=== PATIENT | female | born 1995 | race Hispanic/Latino ===

== ENCOUNTER 2017-07-10 03:55 | Emergency (ER) | payer MEDICAID ==
[2017-07-10 05:20] LABS: Urine Blood NEGATIVE (NEG); Urine Glucose NEGATIVE (NEG); Urine Protein TRACE (NEG); Urine Specific Gravity >1.030 (1.005-1.030)
[2017-07-10 05:40] LABS: Barbiturates NEGATIVE; Benzodiazepines NEGATIVE; Cocaine NEGATIVE; METHAMPHETAM NEGATIVE; Opiates NEGATIVE; Phencyclidine NEGATIVE; THC Cannibis NEGATIVE
[2017-07-10 05:45] LABS: Glucose Level 104 mg/dL (65-120)
[2017-07-10 05:48] LABS: ALT/SGPT 17 IU/L (10-60); AST/SGOT 21 IU/L (10-42); Albumin 3.8 g/dL (3.2-5.5); Alkaline Phosphatase 44 IU/L (42-121); BUN Blood Urea Nitrogen 9 mg/dL (6-20); Glomerular Filtration Rate > 90 mL/min (=/>90); Protein, Total 6.8 g/dL (6.0-8.3)
[2017-07-10 05:52] LABS: Bicarbonate 25 mEq/L (21-31); Sodium Level 134 mEq/L (135-145)
[2017-07-10 05:54] LABS: Bilirubin Total < 0.1 mg/dL (0.3-1.2)
[2017-07-10 05:57] LABS: Absolute Lymphocytes (CBC) 2.4 K/uL (0.7-4.9); Absolute Monocytes 0.4 K/uL (0.1-1.3); Absolute Neutrophil 2.9 K/uL (1.8-8.0); Basophils % 0.6 % (0-1.3); Eosinophils % 3.9 % (0-4.4); Hematocrit 28.3 % (36.0-45.0); MCV 65.5 fL (80-100); MPV 9.4 fL (7.6-11.3); Monocytes % 7.1 % (3.3-12.3); RBC Red Blood Cell Count 4.33 M/uL (3.86-4.86)
--- NOTE | 2017-07-10 06:23 | RAD REPORT ---
EXAM DESCRIPTION: RAD - Chest Single View - 07/10/2017 5:20 am CLINICAL HISTORY: Cough, dyspnea COMPARISON: May 2016 TECHNIQUE: AP portable chest image was obtained 0510 hours . FINDINGS: Lungs are clear. Heart and vasculature are normal. No measurable pleural effusion and no p neumothorax. No gross bony abnormality seen. No acute aortic findings suspected. IMPRESSION: No acute cardiopulmonary process. No significant change from comparison.
[2017-07-10 06:24] LABS: Thyroid Stimulating Hormone 0.05 uIU/mL (0.34-5.60)
[2017-07-10] MEDS ORDERED: POTASSIUM 25 MEQ EFFERV TAB ONE (06:43)
[2017-07-10 06:47] LABS: Anisocytosis 1+; Blood Morphology Comment NOTED (NOT SEEN); Hypochromasia 1+; Platelet Estimate ADEQ
--- NOTE | 2017-07-10 06:59 | EDPHYS ---
Physician Documentation [facility] Name: Kelli Baugh Age: 21 yrs Sex: Female : 1995 Arrival Date: 07/10/2017 Time: 04:01 Bed 6 Private MD: ED Physician Pedro Melvin HPI: 07/10 04:25 This 21 yrs old Female presents to ER via Ambulatory with complaints of Eye rosette Swelling, Breathing Difficulty, Other. 04:25 The patient is experiencing pain. 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 - Social history:: Smoking status: Patient/guardian denies using tobacco, Patient uses alcohol, only on a social basis. Patient/guardian denies using street drugs. ROS: 04:26 Constitutional: Negative for fever, chills, and weight loss, Eyes: Negative for injury, rosette pain, redness, and discharge, ENT: Negative for injury, pain, and discharge, Neck: Negative for injury, pain, and swelling, Abdomen/GI: Negative for abdominal pain, nausea, vomiting, diarrhea, and constipation, Back: Negative for injury and pain, : Negative for injury, bleeding, discharge, and swelling, MS/Extremity: Negative for injury and deformity, Neuro: Negative for headache, weakness, numbness, tingling, and seizure, Psych: Negative for depression, anxiety, suicide ideation, homicidal ideation, and hallucinations, Allergy/Immunology: Negative for hives, rash, and allergies, Endocrine: Negative for neck swelling, polydipsia, polyuria, polyphagia, and marked weight changes, Hematologic/Lymphatic: Negative for swollen nodes, abnormal bleeding, and unusual bruising. 04:26 Cardiovascular: Positive for palpitations. 04:26 Respiratory: Positive for shortness of breath. Exam: 04:26 Constitutional: This is a well developed, well nourished patient who is awake, alert, rosette and in no acute distress. Eyes: Pupils equal round and reactive to light, extra-ocular motions intact. Lids and lashes normal. Conjunctiva and sclera are non-icteric and not injected. Cornea within normal limits. Periorbital areas with no swelling, redness, or edema. ENT: Nares patent. No nasal discharge, no septal abnormalities noted. Tympanic membranes are normal and external auditory canals are clear. Oropharynx with no redness, swelling, or masses, exudates, or evidence of obstruction, uvula midline. Mucous membranes moist. Neck: Trachea midline, no thyromegaly or masses palpated, and no cervical lymphadenopathy. Supple, full range of motion without nuchal rigidity, or vertebral point tenderness. No Meningismus. Chest/axilla: Normal chest wall appearance and motion. Nontender with no deformity. No lesions are appreciated. Cardiovascular: Regular rate and rhythm with a normal S1 and S2. No gallops, murmurs, or rubs. Normal PMI, no JVD. No pulse deficits. Respiratory: Lungs have equal breath sounds bilaterally, clear to auscultation and percussion. No rales, rhonchi or wheezes noted. No increased work of breathing, no retractions or nasal flaring. Abdomen/GI: Soft, non-tender, with normal bowel sounds. No distension or tympany. No guarding or rebound. No evidence of tenderness throughout. Back: No spinal tenderness. No costovertebral tenderness. Full range of motion. Pelvic Exam: Normal external genitalia. Speculum exam with closed cervical os, no discharge or bleeding noted. Bimanual exam with normal adnexa, no adnexal or cervical motion tenderness. Normal uterus. Female : Normal external genitalia. Skin: Warm, dry with normal turgor. Normal color with no rashes, no lesions, and no evidence of cellulitis. MS/ Extremity: Pulses equal, no cyanosis. Neurovascular intact. Full, normal range of motion. Neuro: Awake and alert, GCS 15, oriented to person, place, time, and situation. Cranial nerves II-XII grossly intact. Motor strength 5/5 in all extremities. Sensory grossly intact. Cerebellar exam normal. Normal gait. Psych: Awake, alert, with orientation to person, place and time. Behavior, mood, and affect are within normal limits. 04:26 Head/face: Noted is contusion, swelling, tenderness, that is mild, of the left cheek and left eye. 04:28 Musculoskeletal/extremity: ROM: no acute changes, intact in all extremities, full rosette active range of motion, full passive range of motion, Circulation is intact in all extremities. Pulses: Sensation intact. Compartment Syndrome exam of affected extremity: is normal. DVT Exam: No signs of deep vein thrombosis. no pain, no swelling, no tenderness, negative Homans' sign noted on exam, no appreciated bluish discoloration, no erythema, no increased warmth. Vital Signs: 04:15 BP 134 / 88; Pulse 73; Resp 18 S; Temp 98(O); Pulse Ox 100% on R/A; Weight 63.5 kg (R); bb Height 5 ft. 4 in. (162.56 cm) (R); Pain 0/10; 05:01 BP 101 / 90; Pulse 71; Resp 16; Pulse Ox 100% on R/A; aa1 06:39 BP 104 / 57; Pulse 60; Resp 16; Pulse Ox 100% on R/A; aa1 04:15 Body Mass Index 24.03 (63.50 kg, 162.56 cm) MDM: 04:04 Patient medically screened. [facility] 04:30 Data reviewed: vital signs, nurses notes, lab test result(s), EKG, radiologic studies, [facility] CT scan, plain films. 07/10 04:25 Order name: CBC with Diff [facility] 07/10 04:25 Order name: Comprehensive Metabolic Panel; Complete Time: 06:39 [facility] 07/10 04:25 Order name: TSH; Complete Time: 06:39 [facility] 07/10 04:30 Order name: UDS; Complete Time: 06:39 [facility] 07/10 04:49 Order name: Urine Dipstick--Ancillary (enter results); Complete Time: 05:42 07/10 04:49 Order name: Urine --Ancillary (enter results); Complete Time: 05:42 07/10 04:25 Order name: EKG; Complete Time: 05:02 [facility] 07/10 04:25 Order name: EKG - Nurse/Tech; Complete Time: 04:40 [facility] 07/10 04:25 Order name: CT Maxillofacial W/cont [facility] 07/10 04:28 Order name: Chest Single View XRAY; Complete Time: 06:39 [facility] 07/10 06:47 Order name: Manual Differential EDMS 07/10 04:25 Order name: Urine Test (obtain specimen); Complete Time: 04:40 [facility] 07/10 04:25 Order name: Urine Dipstick-Ancillary (obtain specimen); Complete Time: 04:40 [facility] 07/10 06:45 Order name: PO challenge: juice x 1; Complete Time: 06:48 [facility] Administered Medications: 06:40 CANCELLED (Duplicate Order): Potassium Chloride 40 mEq PO once [facility] 06:48 Drug: Potassium Effervescent Tablet 50 mEq Route: PO; aa1 06:49 Not Given (Hemodynamic Parameters): ToPROL XL 25 mg PO once aa1 Disposition: 07/10/17 06:59 Discharged to Home. Impression: Palpitations, Anemia, unspecified, Hypokalemia, Thyrotoxicosis [hyperthyroidism], Dacryolith of left lacrimal passage. - Condition is Stable. - Discharge Instructions: Iron Deficiency Anemia, Adult, Anemia, Nonspecific, Dacryocystitis, Potassium Content of Foods, Palpitations, Palpitations, [id number], Iron Deficiency Anemia, Adult, [id number], Hypokalemia. - Prescriptions for Tapazole 10 mg Oral Tablet - take 1 tablet by ORAL route every 8 hours; 30 tablet. Toprol XL 25 mg Oral Tablet - take 1 tablet by ORAL route once daily; 20 tablet. Keflex 500 mg Oral Capsule - take 1 capsule by ORAL route every 6 hours for 7 days; 28 capsule. - Work release form, Medication Reconciliation Form, Thank You Letter, Antibiotic Education, Prescription Opioid Use form. - Follow up: Private Physician; When: 2 - 3 days; Reason: Recheck today's complaints, Continuance of care, Re-evaluation by your physician. Follow up: Calin Hull MD; When: 2 - 3 days; Reason: Recheck today's complaints, Re-evaluation by your physician. - Problem is new. - Symptoms have improved. Signatures: Dispatcher [employer] EDMS Shekhar Rodriguez RN RN sg Haven Velasquez RN RN aa1 Pedro Melvin MD MD cha Ballard, Brenda, RN RN bb Corrections: (The following items were deleted from the chart) 06:40 06:39 Potassium Chloride Liquid 40 mEq PO once ordered. [facility]
--- NOTE | 2017-07-10 06:59 | ER ---
Nurse's Notes [facility] Name: Kelli Baugh Age: 21 yrs Sex: Female : 1995 Arrival Date: 07/10/2017 Time: 04:01 Bed 6 Private MD: Diagnosis: Palpitations;Anemia, unspecified;Hypokalemia;Thyrotoxicosis [hyperthyroidism];Dacryolith of left lacrimal passage Presentation: 07/10 04:12 Presenting complaint: Patient states: she woke up approx 0245 with swelling under her bb left eye and palpitations pt states she has Graves Disease. Transition of care: patient was not received from another setting of care. Onset of symptoms was July 10, 2017 at 02:30. Initial Sepsis Screen: Does the patient meet any 2 criteria? No. Patient's initial sepsis screen is negative. Does the patient have a suspected source of infection? No. Patient initial sepsis screen negative. Care prior to arrival: None. 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 - Social history:: Smoking status: Patient/guardian denies using tobacco, Patient uses alcohol, only on a social basis. Patient/guardian denies using street drugs. Screenin:25 Abuse screen: Denies threats or abuse. Denies injuries from another. Nutritional aa1 screening: No deficits noted. Tuberculosis screening: No symptoms or risk factors identified. Fall Risk None identified. Assessment: 04:25 General: Appears in no apparent distress. comfortable, Behavior is calm, cooperative, aa1 appropriate for age. Pain: Denies pain. Neuro: Level of Consciousness is awake, alert, obeys commands, Oriented to person, place, time, situation, Gait is steady, Pupils are PERRLA. Cardiovascular: Heart tones S1 S2 present Rhythm is sinus rhythm. Respiratory: Airway is patent Respiratory effort is even, unlabored, Respiratory pattern is regular, symmetrical, Breath sounds are clear bilaterally. GI: No signs and/or symptoms were reported involving the gastrointestinal system. : No signs and/or symptoms were reported regarding the genitourinary system. EENT: No signs and/or symptoms were reported regarding the EENT system. Derm: Skin is intact, is healthy with good turgor, Skin is pink, warm \T\ dry. Musculoskeletal: Circulation, motion, and sensation intact. Capillary refill < 3 seconds, Swelling present in left cheek. 06:31 Reassessment: Patient appears in no apparent distress at this time. Patient and/or aa1 family updated on plan of care and expected duration. Pain level reassessed. Patient is alert, oriented x 3, equal unlabored respirations, skin warm/dry/pink. Awaiting CT results. Vital Signs: 04:15 BP 134 / 88; Pulse 73; Resp 18 S; Temp 98(O); Pulse Ox 100% on R/A; Weight 63.5 kg (R); bb Height 5 ft. 4 in. (162.56 cm) (R); Pain 0/10; 05:01 BP 101 / 90; Pulse 71; Resp 16; Pulse Ox 100% on R/A; aa1 06:39 BP 104 / 57; Pulse 60; Resp 16; Pulse Ox 100% on R/A; aa1 04:15 Body Mass Index 24.03 (63.50 kg, 162.56 cm) bb ED Course: 04:01 Patient arrived in ED. es 04:04 Pedro Melvin MD is Attending Physician. rosette 04:14 Triage completed. bb 04:15 Arm band placed on Patient placed in an exam room, on a stretcher, on pulse oximetry. bb 04:18 Haven Velasquez, RN is Primary Nurse. aa1 04:25 Patient has correct armband on for positive identification. Placed in gown. Bed in low aa1 position. Call light in reach. Pulse ox on. NIBP on. Warm blanket given. 04:35 Urine collected: clean catch specimen, clear, EKG done, by ED staff, reviewed by Pedro Melvin MD. 04:50 Initial lab(s) drawn, by pr, sent to lab. Inserted saline lock: 20 gauge in left aa1 antecubital area, using aseptic technique. Blood collected. 05:18 X-ray completed. Portable x-ray completed in exam room. Patient tolerated procedure kw well. 05:19 Chest Single View XRAY In Process Unspecified. EDMS 06:12 CT Maxillofacial W/cont In Process Unspecified. EDMS 07:32 Calin Hull MD is Referral Physician. rosette Administered Medications: 06:40 CANCELLED (Duplicate Order): Potassium Chloride 40 mEq PO once rosette 06:48 Drug: Potassium Effervescent Tablet 50 mEq Route: PO; aa1 06:49 Not Given (Hemodynamic Parameters): ToPROL XL 25 mg PO once aa1 Outcome: 06:59 Discharge ordered by . [place] 07:54 Patient left the ED. sg Signatures: Dispatcher [employer] EDMS Shekhar Rodriguez RN RN sg Haven Velasquez RN RN aa1 Pedro Melvin MD MD cha Salyer, Edna es Ballard, Brenda, RN RN Gale Wu
--- NOTE | 2017-07-10 08:12 | RAD REPORT ---
EXAM DESCRIPTION: CT - Maxillofacial W/Cont - 07/10/2017 6:12 am CLINICAL HISTORY: Left-sided facial swelling, Graves disease A preliminary written report was provided at the time of the study, and the report was reviewed prio r to final dictation. COMPARISON: None. TECHNIQUE: During dynamic IV contrast enhancement, axial 2 millimeter thick images obtained. [place] l and coronal reformatted images for generated and reviewed. FINDINGS: Intracranial portion of the examination is unremarkable. Mastoid air cells and paranasal s inuses are clear. No abnormality of the globe or orbital contents. Edema changes are present in the s oft tissues along the inferior orbital rim and maxillary sinus wall on the left. No air or foreign radha dy. No drainable fluid collection. No acute bone finding is identifiable. The left-sided soft tissue changes extend towards the medial canthus. Dacryocystitis are similar infectious/inflammatory changes to the lacrimal system would be consideration. An unrelated cellulitis can give this presentation. IMPRESSION: Edematous/inflammatory soft tissue changes along the inferior orbital rim and maxilla so ft tissues on the left. No foreign body, air or drainable fluid collection. No postseptal orbital or sinus involvement. This could be an nonspecific cellulitis or possible dacry ocystitis or lacrimal system infectious/inflammatory process.
--- NOTE | 2017-07-10 08:26 | EKG ---
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
== END 2017-07-10 07:54 | disposition home or self-care (01) ==
LOC: ER 03:55
DX: D64.9 Anemia, unspecified (principal); E87.6 Hypokalemia; E05.90 Thyrotoxicosis, unspecified without thyrotoxic crisis or storm; H04.512 Dacryolith of left lacrimal passage; Z88.5 Allergy status to narcotic agent
CPT/HCPCS: 36415; 70487; 71045; 80053; 80307; 81003; 81025; 84443; 85025; 93005; 99284; Q9967

== ENCOUNTER 2018-06-17 12:21 | Emergency (ER) | payer MEDICAID ==
--- OUTSIDE RECORDS SUMMARY | 2018-06-17 12:25 | XMS REPORT ---
:1995 [facility] Address [address] [place] [address] [address] [place] [address] Care Team Providers Name Role Phone Unavailable Unavailable Unavailable Problems This patient has no known problems. Allergies, Adverse Reactions, Alerts This patient has no known allergies or adverse reactions. Medications This patient has no known medications.
--- NOTE | 2018-06-17 12:52 | EDPHYS ---
Physician Documentation [facility] Name: Kelli Baugh Age: 22 yrs Sex: Female : 1995 Arrival Date: 06/17/2018 Time: 12:27 Bed 27 Private MD: ED Physician Pedro Melvin HPI: 06/17 12:48 This 22 yrs old Female presents to ER via Unassigned with complaints of snw Abscess. 12:48 The patient presents with an abscess of the left cheek. Description: The affected area snw is small, moderate sized, poorly defined, erythematous, raised, swollen. Onset: The symptoms/episode began/occurred suddenly, 4 day(s) ago. Associated signs and symptoms: Pertinent positives: pain. Modifying factors: the symptoms are alleviated by nothing. Severity of symptoms: At their worst the symptoms were moderate. The patient has not experienced similar symptoms in the past. yes, for same, given doxy on Sunday, IM abx on the same day. Using warm compresses. Pt requests I\T\D, I will not cut her face. Will give pain medications and encourage warm compresses and completion of abx, use of hibiclens soap. 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 - Social history:: Smoking status: Patient/guardian denies using tobacco. - Ebola Screening: : Patient negative for fever greater than or equal to 101.5 degrees Fahrenheit, and additional compatible Ebola Virus Disease symptoms Patient denies exposure to infectious person Patient denies travel to an Ebola-affected area in the 21 days before illness onset No symptoms or risks identified at this time. ROS: 12:47 Constitutional: Negative for fever, chills, and weight loss, Eyes: Negative for injury, snw pain, redness, and discharge, ENT: Negative for injury, pain, and discharge, Neck: Negative for injury, pain, and swelling, Cardiovascular: Negative for chest pain, palpitations, and edema, Respiratory: Negative for shortness of breath, cough, wheezing, and pleuritic chest pain, Abdomen/GI: Negative for abdominal pain, nausea, vomiting, diarrhea, and constipation, Back: Negative for injury and pain, : Negative for injury, bleeding, discharge, and swelling, MS/Extremity: Negative for injury and deformity, Neuro: Negative for headache, weakness, numbness, tingling, and seizure, Psych: Negative for depression, anxiety, suicide ideation, homicidal ideation, and hallucinations, Allergy/Immunology: Negative for hives, rash, and allergies. 12:47 Skin: Positive for abscess. Exam: 12:47 Constitutional: This is a well developed, well nourished patient who is awake, alert, snw and in no acute distress. Eyes: Pupils equal round and reactive to light, extra-ocular motions intact. Lids and lashes normal. Conjunctiva and sclera are non-icteric and not injected. Cornea within normal limits. Periorbital areas with no swelling, redness, or edema. ENT: Nares patent. No nasal discharge, no septal abnormalities noted. Tympanic membranes are normal and external auditory canals are clear. Oropharynx with no redness, swelling, or masses, exudates, or evidence of obstruction, uvula midline. Mucous membranes moist. Neck: Trachea midline, no thyromegaly or masses palpated, and no cervical lymphadenopathy. Supple, full range of motion without nuchal rigidity, or vertebral point tenderness. No Meningismus. Chest/axilla: Normal chest wall appearance and motion. Nontender with no deformity. No lesions are appreciated. Cardiovascular: Regular rate and rhythm with a normal S1 and S2. No gallops, murmurs, or rubs. Normal PMI, no JVD. No pulse deficits. Respiratory: Lungs have equal breath sounds bilaterally, clear to auscultation and percussion. No rales, rhonchi or wheezes noted. No increased work of breathing, no retractions or nasal flaring. Abdomen/GI: Soft, non-tender, with normal bowel sounds. No distension or tympany. No guarding or rebound. No evidence of tenderness throughout. Back: No spinal tenderness. No costovertebral tenderness. Full range of motion. Skin: Warm, dry with normal turgor. Normal color with no rashes, no lesions, and no evidence of cellulitis. MS/ Extremity: Pulses equal, no cyanosis. Neurovascular intact. Full, normal range of motion. Neuro: Awake and alert, GCS 15, oriented to person, place, time, and situation. Cranial nerves II-XII grossly intact. Motor strength 5/5 in all extremities. Sensory grossly intact. Cerebellar exam normal. Normal gait. Psych: Awake, alert, with orientation to person, place and time. Behavior, mood, and affect are within normal limits. 12:47 Head/face: Noted is swelling, that is moderate, of the right jaw. Vital Signs: 12:40 BP 135 / 90; Pulse 93; Resp 16; Temp 98.7; Pulse Ox 99% on R/A; Weight 56.7 kg; Height ch 5 ft. 4 in. (162.56 cm); Pain 10/10; 12:40 Body Mass Index 21.46 (56.70 kg, 162.56 cm) ch MDM: 12:41 Patient medically screened. snw 12:53 Data reviewed: vital signs, nurses notes. snw Administered Medications: 12:47 CANCELLED (allergy concern): [place] 5 mg-325 mg 1 tabs PO once snw 13:00 Drug: fentaNYL (PF) 25 mcg Route: IM; Site: left ventrogluteal; ch 13:30 Follow up: Response: No adverse reaction; Marked relief of symptoms ch 13:02 Drug: TORadol 60 mg Route: IM; Site: right ventrogluteal; ch 13:30 Follow up: Response: No adverse reaction; Marked relief of symptoms ch 13:30 Drug: Zofran 4 mg Route: PO; Disposition: 15:06 Co-signature as Attending Physician, Pedro Melvin MD I agree with the assessment and rosette plan of care. Disposition: 06/17/18 12:52 Discharged to Home. Impression: Cutaneous abscess of face. - Condition is Stable. - Discharge Instructions: Skin Abscess, Heat Therapy. - Prescriptions for Diclofenac Sodium 75 mg Oral Tablet Sustained Release - take 1 tablet by ORAL route 2 times per day; 30 tablet. - Work release form, Medication Reconciliation Form, Thank You Letter, Antibiotic Education, Prescription Opioid Use form. - Follow up: Private Physician; When: 1 - 2 days; Reason: Recheck today's complaints, Continuance of care, Re-evaluation by your physician. Follow up: Emergency Department; When: As needed; Reason: Worsening of condition. - Notes: Continue current antibiotics. Use Hibiclens soap to affected area twice daily. Signatures: Zofia Carvalho, Pedro Allison RN, ch, MD MD cha Therrien, Shelly, PHARMACY GENERAL MANAGER-C PHARMACY GENERAL MANAGER-Csnw Corrections: (The following items were deleted from the chart) 12:47 12:47 [place] 5 mg-325 mg 1 tabs PO once ordered. [facility] 13:42 12:52 06/17/2018 12:52 Discharged to Home. Impression: Cutaneous abscess of face. Condition is Stable. Forms are Medication Reconciliation Form, Thank You Letter, Antibiotic Education, Prescription Opioid Use. Follow up: Private Physician; When: 1 - 2 days; Reason: Recheck today's complaints, Continuance of care, Re-evaluation by your physician. Follow up: Emergency Department; When: As needed; Reason: Worsening of condition. formerly [facility] 13:47 13:42 06/17/2018 12:52 Discharged to Home. Impression: Cutaneous abscess of face. Condition is Stable. Discharge Instructions: Skin Abscess, Heat Therapy. Prescriptions for Diclofenac Sodium 75 mg Oral Tablet Sustained Release - take 1 tablet by ORAL route 2 times per day; 30 tablet. and Forms are Medication Reconciliation Form, Thank You Letter, Antibiotic Education, Prescription Opioid Use, Work release form. Follow up: Private Physician; When: 1 - 2 days; Reason: Recheck today's complaints, Continuance of care, Re-evaluation by your physician. Follow up: Emergency Department; When: As needed; Reason: Worsening of condition. ch
[2018-06-17] MEDS ORDERED: FENTANYL CITR 100 MCG/2 ML ONE (13:04)
[2018-06-17] MEDS ORDERED: KETOROLAC 30 MG/ML INJ ONE (13:05)
--- NOTE | 2018-06-17 13:42 | ER ---
Nurse's Notes [facility] Name: Kelli Baugh Age: 22 yrs Sex: Female : 1995 Arrival Date: 06/17/2018 Time: 12:27 Bed 27 Private MD: Diagnosis: Cutaneous abscess of face Presentation: 06/17 12:40 Presenting complaint: Patient states: "abscess" to R cheek since Sunday, taking ch doxycycline since Sunday, got a shot of antibiotic today, states the pain is unbearable. pt is crying in room, holding face. 12:40 Transition of care: patient was not received from another setting of care. Onset of ch symptoms was June 14, 2018. Risk Assessment: Do you want to hurt yourself or someone else? Patient reports no desire to harm self or others. Initial Sepsis Screen: Does the patient meet any 2 criteria? No. Patient's initial sepsis screen is negative. Does the patient have a suspected source of infection? No. Patient's initial sepsis screen is negative. Care prior to arrival: Medication(s) given: antibiotics. 12:40 Method Of Arrival: Ambulatory 12:40 Acuity: AMADOR 5 ch Triage Assessment: 12:40 General: Appears in no apparent distress. uncomfortable, Behavior is cooperative, ch appropriate for age, anxious. Pain: Complains of pain in right jaw Pain currently is 10 out of 10 on a pain scale. Neuro: No deficits noted. Respiratory: No deficits noted. Airway is patent Respiratory effort is even, unlabored. GI: No signs and/or symptoms were reported involving the gastrointestinal system. Derm: Skin is pink, warm \\T\\ dry. Wound noted right jaw Wound is pt has raised swollen area to R lower cheek/jaw line, unopened now, but shows redness and beginnings of a head to the area. redness approx dime sized, with swelling slightly smaller than golf ball. Musculoskeletal: No signs and/or symptoms reported regarding the musculoskeletal system. 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 - Social history:: Smoking status: Patient/guardian denies using tobacco. - Ebola Screening: : Patient negative for fever greater than or equal to 101.5 degrees Fahrenheit, and additional compatible Ebola Virus Disease symptoms Patient denies exposure to infectious person Patient denies travel to an Ebola-affected area in the 21 days before illness onset No symptoms or risks identified at this time. Screenin:08 Abuse screen: Denies threats or abuse. Denies injuries from another. Nutritional ch screening: No deficits noted. Tuberculosis screening: No symptoms or risk factors identified. Fall Risk None identified. Assessment: 13:08 Reassessment: Patient appears in no apparent distress at this time. Patient and/or ch family updated on plan of care and expected duration. Pain level reassessed. Patient is alert, oriented x 3, equal unlabored respirations, skin warm/dry/pink. Vital Signs: 12:40 BP 135 / 90; Pulse 93; Resp 16; Temp 98.7; Pulse Ox 99% on R/A; Weight 56.7 kg; Height 5 ft. 4 in. (162.56 cm); Pain 10/10; 12:40 Body Mass Index 21.46 (56.70 kg, 162.56 cm) ED Course: 12:27 Patient arrived in ED. mr 12:40 Arm band placed on left wrist. Patient placed in an exam room, on a stretcher. 12:41 [facility] Baer [facility]C [facility]. snw 12:41 Pedro Melvin MD is Attending Physician. snw 12:51 Zofia Carvalho, RN is Primary Nurse. 13:04 Triage completed. ch 13:08 Patient has correct armband on for positive identification. Bed in low position. Call light in reach. Side rails up X 1. 13:08 No provider procedures requiring assistance completed. ch 13:46 Primary Nurse role handed off by Zofia Carvalho, WILLA Administered Medications: 12:47 CANCELLED (allergy concern): [place] 5 mg-325 mg 1 tabs PO once snw 13:00 Drug: fentaNYL (PF) 25 mcg Route: IM; Site: left ventrogluteal; 13:30 Follow up: Response: No adverse reaction; Marked relief of symptoms 13:02 Drug: TORadol 60 mg Route: IM; Site: right ventrogluteal; 13:30 Follow up: Response: No adverse reaction; Marked relief of symptoms 13:30 Drug: Zofran 4 mg Route: PO; Outcome: 12:52 Discharge ordered by . alyson 13:42 Patient left the ED. 13:47 Patient left the ED. Signatures: Zofia Carvalho, RN RN Silvia Baer, INTERIOR DESIGN PROFESSOR-C INTERIOR DESIGN PROFESSOR-Csnw Qamar Naomie
[2018-06-17] MEDS ORDERED: ONDANSETRON 4 MG (ODT) TAB ONE (13:48)
== END 2018-06-17 13:47 | disposition home or self-care (01) ==
LOC: ER 12:21
DX: L02.01 Cutaneous abscess of face (principal); Z88.6 Allergy status to analgesic agent
CPT/HCPCS: 96372; 99282; J3010

== ENCOUNTER 2018-07-08 18:49 | Emergency (ER) | payer MEDICAID ==
--- OUTSIDE RECORDS SUMMARY | 2018-07-08 18:51 | XMS REPORT ---
:1995 [facility] Address [address] [place] [address] [address] [place] [address] Care Team Providers Name Role Phone Unavailable Unavailable Unavailable Problems This patient has no known problems. Allergies, Adverse Reactions, Alerts This patient has no known allergies or adverse reactions. Medications This patient has no known medications.
--- OUTSIDE RECORDS SUMMARY | 2018-07-08 18:51 | XMS REPORT ---
:1995 Author Organization [employer] Care Team Providers Name Role Phone Adilson Parikhh Provider Role Unavailable Allergies, Adverse Reactions, Alerts Substance Reaction Event Type Lortab hives Drug Allergy Problems Problem Type Condition Code Onset Dates Condition Status Assessment Pruritic dermatitis L29.9 Active Assessment Tobacco use disorder F17.200 Active Assessment Rash of unknown cause R21 Active Assessment Need for influenza vaccination Z23 Active Assessment Current moderate episode of major F32.1 Active depressive disorder without prior episode Assessment Graves' disease E05.00 Active Problem Tobacco use disorder F17.200 Active Problem Graves' disease E05.00 Active Problem Generalized anxiety disorder F41.1 Active Assessment Well adult on routine health check Z00.00 Active Assessment Generalized anxiety disorder F41.1 Active Problem Current moderate episode of major F32.1 Active depressive disorder without prior episode Medications Medication Code Code Instructions Start End Status Dosage System Date Date MethylPREDNISolone ND 59571042568 4 MG Orally June Active as Use as , directed directed 2018 2018 HydrOXYzine Pamoate ND 10896849664 100 MG Orally Active as Once a day PRN directed Anxiety Gabapentin ND 47809210114 600 MG Orally Active 1 capsule Twice a day Results No Known Results Immunizations Vaccine Administration Date Afluria July 02, 2018 Summary Purpose eClinicalWorks Submission
[2018-07-08 20:08] LABS: Absolute Lymphocytes (CBC) 1.8 K/uL (0.7-4.9); Absolute Monocytes 0.2 K/uL (0.1-1.3); Absolute Neutrophil 1.8 K/uL (1.8-8.0); Basophils % 0.8 % (0-1.3); Eosinophils % 6.5 % (0-4.4); Hematocrit 24.4 % (36.0-45.0); MPV 8.7 fL (7.6-11.3); Monocytes % 5.9 % (3.3-12.3); RBC Red Blood Cell Count 3.97 M/uL (3.86-4.86)
[2018-07-08 20:23] LABS: BUN Blood Urea Nitrogen 8 mg/dL (7-18); Bicarbonate 26 mmol/L (21-32); Glucose Level 91 mg/dL (74-106); Potassium 3.4 mmol/L (3.5-5.1); Sodium Level 139 mmol/L (136-145)
--- NOTE | 2018-07-08 20:49 | ER ---
Nurse's Notes [facility] Name: Kelli Baugh Age: 22 yrs Sex: Female : 1995 Arrival Date: 07/08/2018 Time: 18:50 Bed 30 Private MD: Diagnosis: Anemia in chronic diseases classified elsewhere Presentation: 07/08 19:03 Presenting complaint: Patient states: Had labs done on and notified of low lp1 Hemoglobin and to come to ER; Hx of anemia and low iron, has had transfusions in the past; States feeling fatigued. Transition of care: patient was not received from another setting of care. Onset of symptoms was July 08, 2018. Risk Assessment: Do you want to hurt yourself or someone else? Patient reports no desire to harm self or others. Initial Sepsis Screen: Does the patient meet any 2 criteria? No. Patient's initial sepsis screen is negative. Does the patient have a suspected source of infection? No. Patient's initial sepsis screen is negative. Care prior to arrival: None. 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 - Social history:: Smoking status: Patient uses tobacco products, denies chronic smoking, but will smoke occasionally. - Ebola Screening: : No symptoms or risks identified at this time. Screenin:05 Abuse screen: Denies threats or abuse. Denies injuries from another. Nutritional lp1 screening: No deficits noted. Tuberculosis screening: No symptoms or risk factors identified. Fall Risk None identified. Assessment: 19:25 General: Appears in no apparent distress. comfortable, Behavior is calm, cooperative, ca1 appropriate for age, Reports of abnormal lab results but unaware of the specific results. Has had the blood drawn on Sunday and was called on for the abnormal results and was advised to visit the ER. Pain: Denies pain. Neuro: Level of Consciousness is awake, alert, obeys commands, Oriented to person, place, time, situation. Cardiovascular: Heart tones S1 S2 present Capillary refill < 3 seconds Patient's skin is warm and dry. Respiratory: Airway is patent Respiratory effort is even, unlabored, Respiratory pattern is regular, symmetrical, Breath sounds are clear bilaterally. GI: Abdomen is flat, non-distended, Bowel sounds present X 4 quads. Abd is soft and non tender X 4 quads. : No deficits noted. No signs and/or symptoms were reported regarding the genitourinary system. EENT: No deficits noted. No signs and/or symptoms were reported regarding the EENT system. Derm: Skin is intact, is healthy with good turgor, Skin is pink, warm \T\ dry. Musculoskeletal: Circulation, motion, and sensation intact. Capillary refill < 3 seconds. 20:15 Reassessment: Patient appears in no apparent distress at this time. Patient is alert, ca1 oriented x 3, equal unlabored respirations, skin warm/dry/pink. 20:20 Reassessment: CRITICAL LAB RESULT HGB 6.8. Informed provider. ca1 21:07 Reassessment: Patient appears in no apparent distress at this time. Patient is alert, ca1 oriented x 3, equal unlabored respirations, skin warm/dry/pink. Pt will come back tomorrow for transfusion. Vital Signs: 19:05 BP 143 / 98; Pulse 99; Resp 18; Temp 99(TE); Pulse Ox 99% on R/A; Weight 63.05 kg; lp1 Height 5 ft. 4 in. (162.56 cm); Pain 0/10; 20:16 BP 135 / 89; Pulse 98; Resp 17 S; Pulse Ox 99% on R/A; ca1 21:00 BP 124 / 75; Pulse 70; Resp 18 S; Pulse Ox 100% on R/A; ca1 19:05 Body Mass Index 23.86 (63.05 kg, 162.56 cm) lp1 ED Course: 18:50 Patient arrived in ED. as 19:04 Triage completed. lp1 19:05 Arm band placed on right wrist. lp1 19:25 Patient has correct armband on for positive identification. Placed in gown. Bed in low ca1 position. Call light in reach. Side rails up X 1. Pulse ox on. NIBP on. Warm blanket given. 19:37 Yan Aguilar MD is Attending Physician. 19:43 Marina Painting, RN is Primary Nurse. ca1 20:49 Cece Mosqueda MD is Referral Physician. gs 21:08 No provider procedures requiring assistance completed. IV discontinued, intact, ca1 bleeding controlled, No redness/swelling at site. Pressure dressing applied. Administered Medications: No medications were administered Outcome: :49 Discharge ordered by . gs 21:08 Discharged to home ambulatory, with significant other. ca1 21:08 Condition: stable 21:08 Discharge instructions given to patient, Instructed on discharge instructions, follow up and referral plans. Demonstrated understanding of instructions, follow-up care. 21:09 Patient left the ED. ca1 Signatures: Kaye Shelley Laura, RN RN lp1 Yan Aguilar MD MD Marina Painting, RN RN ca1
--- NOTE | 2018-07-08 20:50 | EDPHYS ---
Physician Documentation [facility] Name: Kelli Baugh Age: 22 yrs Sex: Female : 1995 Arrival Date: 07/08/2018 Time: 18:50 Bed 30 Private MD: ED Physician Yan Aguilar HPI: 07/08 20:43 This 22 yrs old Female presents to ER via Ambulatory with complaints of gs Abnormal Lab Results - low Hgb. 20:43 called by md for low hb, hx anemia blood transfusions last transfusion 2 years ago. gs Onset: The symptoms/episode began/occurred gradually, 1 month(s) ago. Severity of symptoms: At their worst the symptoms were moderate in the emergency department the symptoms are unchanged. The patient has experienced similar episodes in the past, a few times. 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 - Social history:: Smoking status: Patient uses tobacco products, denies chronic smoking, but will smoke occasionally. - Ebola Screening: : No symptoms or risks identified at this time. ROS: 20:43 All other systems are negative. gs 20:43 Cardiovascular: Negative for chest pain. gs 20:43 Respiratory: Negative for shortness of breath. 20:43 Neuro: Negative for weakness. Exam: 20:43 Head/Face: Normocephalic, atraumatic. Eyes: Pupils equal round and reactive to light, gs extra-ocular motions intact. Lids and lashes normal. Conjunctiva and sclera are non-icteric and not injected. Cornea within normal limits. Periorbital areas with no swelling, redness, or edema. ENT: Nares patent. No nasal discharge, no septal abnormalities noted. Tympanic membranes are normal and external auditory canals are clear. Oropharynx with no redness, swelling, or masses, exudates, or evidence of obstruction, uvula midline. Mucous membranes moist. Neck: Trachea midline, no thyromegaly or masses palpated, and no cervical lymphadenopathy. Supple, full range of motion without nuchal rigidity, or vertebral point tenderness. No Meningismus. Chest/axilla: Normal chest wall appearance and motion. Nontender with no deformity. No lesions are appreciated. Cardiovascular: Regular rate and rhythm with a normal S1 and S2. No gallops, murmurs, or rubs. Normal PMI, no JVD. No pulse deficits. Respiratory: Lungs have equal breath sounds bilaterally, clear to auscultation and percussion. No rales, rhonchi or wheezes noted. No increased work of breathing, no retractions or nasal flaring. Abdomen/GI: Soft, non-tender, with normal bowel sounds. No distension or tympany. No guarding or rebound. No evidence of tenderness throughout. Back: No spinal tenderness. No costovertebral tenderness. Full range of motion. Skin: Warm, dry with normal turgor. Normal color with no rashes, no lesions, and no evidence of cellulitis. MS/ Extremity: Pulses equal, no cyanosis. Neurovascular intact. Full, normal range of motion. Neuro: Awake and alert, GCS 15, oriented to person, place, time, and situation. Cranial nerves II-XII grossly intact. Motor strength 5/5 in all extremities. Sensory grossly intact. Cerebellar exam normal. Normal gait. 20:43 Constitutional: The patient appears alert, awake. Vital Signs: 19:05 BP 143 / 98; Pulse 99; Resp 18; Temp 99(TE); Pulse Ox 99% on R/A; Weight 63.05 kg; lp1 Height 5 ft. 4 in. (162.56 cm); Pain 0/10; 20:16 BP 135 / 89; Pulse 98; Resp 17 S; Pulse Ox 99% on R/A; ca1 21:00 BP 124 / 75; Pulse 70; Resp 18 S; Pulse Ox 100% on R/A; ca1 19:05 Body Mass Index 23.86 (63.05 kg, 162.56 cm) lp1 MDM: 20:21 Patient medically screened. gs 20:43 Differential Diagnosis anemia, blood loss. Data reviewed: vital signs, nurses notes. gs Counseling: I had a detailed discussion with the patient and/or guardian regarding: the historical points, exam findings, and any diagnostic results supporting the discharge/admit diagnosis, need for blood transfusion. pt states does not want to stay for blood transfusion will come tomorrow for blood. Response to treatment: There is no appreciated change of the patient's symptoms at this time. 07/08 19:39 Order name: CBC with Diff 07/08 19:39 Order name: Basic Metabolic Panel; Complete Time: 20:31 07/08 19:39 Order name: T\T\S 07/08 19:39 Order name: Urine Microscopic Only 07/08 20:21 Order name: CBC Smear Scan EDMT 07/08 20:35 Order name: Urine Dipstick--Ancillary (enter results) ms 07/08 19:39 Order name: Urine Test (obtain specimen); Complete Time: 20:10 07/08 19:39 Order name: Urine Dipstick-Ancillary (obtain specimen); Complete Time: 20:10 07/08 20:35 Order name: Urine --Ancillary (enter results) ms Administered Medications: No medications were administered Disposition: 07/08/18 20:49 Discharged to Home. Impression: Anemia in chronic diseases classified elsewhere. - Condition is Stable. - Discharge Instructions: Anemia, Nonspecific. - Medication Reconciliation Form, Thank You Letter, Antibiotic Education, Prescription Opioid Use form. - Follow up: Private Physician; When: 1 - 2 days; Reason: Re-evaluation by your physician. Follow up: Cece Mosqueda MD; When: 1 - 2 days; Reason: Re-evaluation by your physician. Signatures: Dispatcher [employer] [facility] Doris Zavaleta RN RN lp1 Yan Aguilar MD MD Marina Painting RN RN ca1 Corrections: (The following items were deleted from the chart) 21:09 20:49 07/08/2018 20:49 Discharged to Home. Impression: Anemia in chronic diseases ca1 classified elsewhere. Condition is Stable. Forms are Medication Reconciliation Form, Thank You Letter, Antibiotic Education, Prescription Opioid Use. Follow up: Private Physician; When: 1 - 2 days; Reason: Re-evaluation by your physician. Follow up: Cece Bhat; When: 1 - 2 days; Reason: Re-evaluation by your physician.
[2018-07-08 21:07] LABS: Urine Bacteria <20 /HPF (<20); Urine Culture Reflex Order NOT NEEDED
[2018-07-08 21:08] LABS: Urine Blood 2+ (NEG); Urine Glucose NEGATIVE (NEG); Urine Protein NEGATIVE (NEG); Urine Specific Gravity 1.015 (1.005-1.030); Urine pH 8.5 (5.0-7.0)
[2018-07-08 21:24] LABS: Blood Morphology Comment NOTED (NOT SEEN); Platelet Estimate ADEQ; Urine White Blood Cell Casts OK
[2018-07-08 21:25] LABS: Hypochromasia 3+
== END 2018-07-08 21:09 | disposition home or self-care (01) ==
LOC: ER 18:49
DX: D64.9 Anemia, unspecified (principal); F41.9 Anxiety disorder, unspecified; Z79.899 Other long term (current) drug therapy
CPT/HCPCS: 36415; 80048; 81003; 81015; 81025; 85025; 86850; 86900; 86901; 99283

== ENCOUNTER 2018-07-09 19:23 | Observation (INO) | payer MEDICAID ==
--- OUTSIDE RECORDS SUMMARY | 2018-07-09 19:28 | XMS REPORT ---
[...] Status Dosage System Date Date MethylPREDNISolone ND 14179889510 4 MG Orally June Active as Use as , directed directed 2018 2018 HydrOXYzine Pamoate ND 20757074915 100 MG Orally Active as Once a day PRN directed Anxiety Gabapentin ND 05658527777 600 MG Orally Active 1 capsule Twice a day Results No Known Results Immunizations Vaccine Administration Date Afluria July 02, 2018 Summary Purpose eClinicalWorks Submission
--- OUTSIDE RECORDS SUMMARY | 2018-07-09 19:28 | XMS REPORT ---
:1995 [facility] Address [address] [place] [address] [address] [place] [address] Care Team Providers Name Role Phone Unavailable Unavailable Unavailable Problems This patient has no known problems. Allergies, Adverse Reactions, Alerts This patient has no known allergies or adverse reactions. Medications This patient has no known medications.
--- NOTE | 2018-07-09 19:57 | ER ---
Nurse's Notes [facility] Name: Kelli Baugh Age: 22 yrs Sex: Female : 1995 Arrival Date: 07/09/2018 Time: 19:24 Bed 28 Private MD: Maxim Parikh Diagnosis: Anemia in chronic diseases classified elsewhere Presentation: 07/09 19:36 Presenting complaint: Patient states: out patient labs done Sunday last week and ak1 told to come to ER. pt came to ER last night with labs drawn and needing transfusion, pt unable to stay so came back today for transfusion. Transition of care: patient was not received from another setting of care. Onset of symptoms was July 09, 2018. Risk Assessment: Do you want to hurt yourself or someone else? Patient reports no desire to harm self or others. Initial Sepsis Screen: Does the patient meet any 2 criteria? No. Patient's initial sepsis screen is negative. Does the patient have a suspected source of infection? No. Patient's initial sepsis screen is negative. Care prior to arrival: None. 19:36 Method Of Arrival: Ambulatory ak1 19:36 Acuity: AMADOR 3 ak1 Triage Assessment: 19:38 General: Appears in no apparent distress. Behavior is calm, cooperative, anxious. Pain: ak1 Denies pain. 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 - Social history:: Smoking status: Patient uses tobacco products, denies chronic smoking, but will smoke occasionally. - Ebola Screening: : No symptoms or risks identified at this time. Screenin:21 Abuse screen: Denies threats or abuse. Denies injuries from another. Nutritional mg2 screening: No deficits noted. Tuberculosis screening: No symptoms or risk factors identified. Fall Risk IV access (20 points). Assessment: 20:54 General: Appears in no apparent distress. comfortable, Behavior is calm, cooperative. mg2 Pain: Denies pain. Neuro: Level of Consciousness is awake, alert, obeys commands, Oriented to person, place, time, situation. Cardiovascular: Capillary refill < 3 seconds Patient's skin is warm and dry. Respiratory: Airway is patent Respiratory effort is even, unlabored, Respiratory pattern is regular, symmetrical. GI: No signs and/or symptoms were reported involving the gastrointestinal system. : No signs and/or symptoms were reported regarding the genitourinary system. EENT: No signs and/or symptoms were reported regarding the EENT system. Derm: Skin is intact, is healthy with good turgor, Skin is. Derm: Skin Skin is pale. Musculoskeletal: Circulation, motion, and sensation intact. Capillary refill < 3 seconds. 20:56 Reassessment: patient informed about the need for hospitalization. blood transfusion mg2 consent signed by the patient herself. Vital Signs: 19:38 BP 131 / 86; Pulse 77; Resp 16; Temp 98.5(TE); Pulse Ox 100% on R/A; Weight 63.5 kg ak1 (R); Height 5 ft. 4 in. (162.56 cm) (R); Pain 0/10; 21:10 BP 102 / 54; Pulse 95; Resp 18; Temp 98.2; Pulse Ox 100% on R/A; Pain 0/10; mg2 22:31 BP 117 / 65; Pulse 86; Resp 18; Temp 98.6(O); Pulse Ox 100% on R/A; Pain 0/10; mg2 19:38 Body Mass Index 24.03 (63.50 kg, 162.56 cm) ak1 ED Course: 19:24 Patient arrived in ED. am2 19:24 Maxim Parikh DO is Private Physician. am2 19:38 Triage completed. ak1 19:38 Arm band placed on Patient placed in an exam room, on a stretcher, Patient notified of ak1 wait time. 19:41 Yan Aguilar MD is Attending Physician. gs 19:56 Toro Cole MD is Hospitalizing Provider. gs 20:01 Aakash Yap, WILLA is Primary Nurse. mg2 20:22 Patient has correct armband on for positive identification. Pulse ox on. NIBP on. Door mg2 closed. Warm blanket given. 20:22 No provider procedures requiring assistance completed. Inserted saline lock: 20 gauge mg2 in right antecubital area, using aseptic technique. 22:47 Patient admitted, IV remains in place. mg2 Administered Medications: No medications were administered Outcome: 19:56 Decision to Hospitalize by Provider. 22:48 Admitted to Med/surg accompanied by tech, via wheelchair, room 212, with chart, Report mg2 called to [facility] 22:48 Condition: stable 22:48 Instructed on the need for admit, Demonstrated understanding of instructions. 23:26 Patient left the ED. mg2 Signatures: Jeanie Hackett RN RN ak1 Dinorah Green am2 Yan Aguilar MD MD Aakash Yap RN RN mg2 Corrections: (The following items were deleted from the chart) 23:26 22:48 Admitted to Med/surg accompanied by tech, via wheelchair, room 212, with chart, mg2 Report called to 212 mg2
--- NOTE | 2018-07-09 19:57 | EDPHYS ---
Physician Documentation [facility] Name: Kelli Baugh Age: 22 yrs Sex: Female : 1995 Arrival Date: 07/09/2018 Time: 19:24 Bed 28 Private MD: [facility] ED Physician Yan Aguilar HPI: 07/09 19:54 This 22 yrs old Female presents to ER via Ambulatory with complaints of blood gs transfusion. 19:54 Onset: The symptoms/episode began/occurred 1 month(s) ago, and became persistent. gs Severity of symptoms: At their worst the symptoms were severe in the emergency department the symptoms are unchanged. The patient has experienced similar episodes in the past, multiple times. The patient has been recently seen at the [facility] Emergency Department, yesterday. 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 - Social history:: Smoking status: Patient uses tobacco products, denies chronic smoking, but will smoke occasionally. - Ebola Screening: : No symptoms or risks identified at this time. ROS: 19:54 All other systems are negative. gs Exam: 19:54 Head/Face: Normocephalic, atraumatic. Eyes: Pupils equal round and reactive to light, gs extra-ocular motions intact. Lids and lashes normal. Conjunctiva and sclera are non-icteric and not injected. Cornea within normal limits. Periorbital areas with no swelling, redness, or edema. ENT: Nares patent. No nasal discharge, no septal abnormalities noted. Tympanic membranes are normal and external auditory canals are clear. Oropharynx with no redness, swelling, or masses, exudates, or evidence of obstruction, uvula midline. Mucous membranes moist. Neck: Trachea midline, no thyromegaly or masses palpated, and no cervical lymphadenopathy. Supple, full range of motion without nuchal rigidity, or vertebral point tenderness. No Meningismus. Chest/axilla: Normal chest wall appearance and motion. Nontender with no deformity. No lesions are appreciated. Cardiovascular: Regular rate and rhythm with a normal S1 and S2. No gallops, murmurs, or rubs. Normal PMI, no JVD. No pulse deficits. Respiratory: Lungs have equal breath sounds bilaterally, clear to auscultation and percussion. No rales, rhonchi or wheezes noted. No increased work of breathing, no retractions or nasal flaring. Abdomen/GI: Soft, non-tender, with normal bowel sounds. No distension or tympany. No guarding or rebound. No evidence of tenderness throughout. Back: No spinal tenderness. No costovertebral tenderness. Full range of motion. Skin: Warm, dry with normal turgor. Normal color with no rashes, no lesions, and no evidence of cellulitis. MS/ Extremity: Pulses equal, no cyanosis. Neurovascular intact. Full, normal range of motion. Neuro: Awake and alert, GCS 15, oriented to person, place, time, and situation. Cranial nerves II-XII grossly intact. Motor strength 5/5 in all extremities. Sensory grossly intact. Cerebellar exam normal. Normal gait. 19:54 Constitutional: The patient appears alert, awake. 07/10 09:28 Skin: left sided pityriasis type rash flank to axilla no cellulitis. Vital Signs: 07/09 19:38 BP 131 / 86; Pulse 77; Resp 16; Temp 98.5(TE); Pulse Ox 100% on R/A; Weight 63.5 kg ak1 (R); Height 5 ft. 4 in. (162.56 cm) (R); Pain 0/10; 21:10 BP 102 / 54; Pulse 95; Resp 18; Temp 98.2; Pulse Ox 100% on R/A; Pain 0/10; mg2 22:31 BP 117 / 65; Pulse 86; Resp 18; Temp 98.6(O); Pulse Ox 100% on R/A; Pain 0/10; mg2 19:38 Body Mass Index 24.03 (63.50 kg, 162.56 cm) ak MDM: 19:46 Patient medically screened. 19:54 Data reviewed: vital signs, nurses notes. 07/09 19:46 Order name: Type And Screen 07/09 21:19 Order name: Type and Screen [facility] 07/09 21:20 Order name: Packed RBC Leukored -1 [facility] 07/09 21:53 Order name: Ferritin EDWA 07/09 21:53 Order name: Transferrin Sat/Iron Binding EDWA Administered Medications: No medications were administered Disposition: 07/09/18 19:56 Hospitalization ordered by Toro Cole for Observation. Preliminary diagnosis is Anemia in chronic diseases classified elsewhere. - Bed requested for Telemetry/MedSurg (observation). - Status is Observation. mg2 - Condition is Stable. - Problem is new. - Symptoms are unchanged. UTI on Admission? No Signatures: Dispatcher [employer] [facility] Iris Macdonald, RN RN Jeanie Hackett RN RN ak1 Yan Aguilar MD MD gs Gardose, Michele RN RN mg2 Corrections: (The following items were deleted from the chart) 20:24 19:47 TYPE AND SCREEN+[id number].LAB.BRZ ordered. [facility] 22:16 19:56 Hospitalization Ordered by Toro Cole MD for Observation. Preliminary dw diagnosis is Anemia in chronic diseases classified elsewhere. Bed requested for Telemetry/MedSurg (observation). Status is Observation. Condition is Stable. Problem is new. Symptoms are unchanged. UTI on Admission? No. gs 23:26 22:16 07/09/2018 19:56 Hospitalization Ordered by Toro Cole MD for Observation. mg2 Preliminary diagnosis is Anemia in chronic diseases classified elsewhere. Bed requested for Telemetry/MedSurg (observation). Status is Observation. Condition is Stable. Problem is new. Symptoms are unchanged. UTI on Admission? No. dw
[2018-07-09] MEDS ORDERED: NA CHLORIDE 0.9% 250 ML ONE (21:06)
--- NOTE | 2018-07-09 22:22 | P.HP ---
Certification for Inpatient Patient admitted to: Observation With expected LOS: <2 Midnights Practitioner: I am a practitioner with admitting privileges, knowledge of patient current condition, hospital course, and medical plan of care. Services: Services provided to patient in accordance with Admission requirements found in Title 42 Section 412.3 of the Code of Federal Regulations Patient History Date of Service: 07/09/18 Reason for admission: anemia History of Present Illness: Ms Jhon Baugh is a 22 years old woman with history of chronic anemia, Graves disease, who recently established new PCP in this area, Dr Parikh. He ordered a routine laboratory work, which was remarkable for hgb of 6.9 mg/dl. MCV was also low. The patient does not report any associated symptom. She denied bloody or dark stools. No bloody emesis either. Her menses are irregular but not heavy. She has had EGD and colonoscopy, reported as normal. Pending capsule endoscopy. She has never had anemia work up in the past. The patient was sent by her PCP to ED yesterday for blood transfusion, however, the patient did not want to stay because had to work early this morning. Tonight she came again to have her blood transfusion, again no symptoms complained. Allergies acetaminophen [From Lortab] Allergy (Unverified 05/24/16 23:31) Unknown hydrocodone [From Lortab] Allergy (Unverified 05/24/16 23:31) Unknown hydrocodone bitartrate [From Lortab] Allergy (Verified 04/29/12 16:04) Itching/Hives/Rash Home medications list reviewed: Yes Home Medications: Methylergonovine [Methergine*] 0.2 mg PO Q4HP #4 tab 08/17/12 - Past Medical/Surgical History -: anemia -: graves disease -: Cyst removed from left ovary - Social History Smoking Status: Never smoker Alcohol use: No CD- Drugs: No Caffeine use: Yes Place of Residence: Home Review of Systems 10-point ROS is otherwise unremarkable Physical Examination - Physical Exam General: Alert, In no apparent distress HEENT: Atraumatic, PERRLA, Mucous membr. moist/pink, EOMI, Sclerae nonicteric Neck: Supple, 2+ carotid pulse no bruit, No LAD, Without JVD or thyroid abnormality Respiratory: Clear to auscultation bilaterally, Normal air movement Cardiovascular: Regular rate/rhythm, Normal S1 S2 Gastrointestinal: Normal bowel sounds, No tenderness Musculoskeletal: No tenderness Integumentary: No rashes Neurological: Normal gait, Normal speech, Normal strength at 5/5 x4 extr, Normal tone, Normal affect Lymphatics: No axilla or inguinal lymphadenopathy Assessment and Plan - Problems (Diagnosis) (1) Anemia Current Visit: Yes Status: Acute Qualifiers: Anemia type: unspecified type Qualified Code(s): D64.9 - Anemia, unspecified (2) Graves disease Current Visit: Yes Status: Acute - Plan Will keep the patient under observation in order to proceed with her PRBC transfusion, so far ordered 1 UNIT. Iron studies ordered before blood transfusion started. Her thyroid function is abnormal, she suppose to be on Methimazole, but she has not taking this medication for a long time. Will defer restart medication by PCP. - Advance Directives Does patient have a Living Will: No Does patient have a Durable POA for Healthcare: No - Code Status/Comfort Care Code Status Assessed: Yes Code Status: Full Code
[2018-07-09] MEDS ORDERED: ONDANSETRON 4 MG/2 ML VIAL IV PRN (22:52)
[2018-07-09 23:57] LABS: Ferritin 1.2 ng/mL (8-388)
[2018-07-10] MEDS ORDERED: hydrOXYzine HCl 25 MG TAB PO ONE (00:24)
[2018-07-10] MEDS ORDERED: NA CHLORIDE 0.9% 250 ML ONE (01:13)
[2018-07-10 07:00] LABS: Hematocrit 24.9 % (36.0-45.0)
[2018-07-10] MEDS ORDERED: HYDROXYZINE HCL 10 MG/5 ML SYRUP UD PO PRN (07:20)
[2018-07-10] MEDS ORDERED: GABAPENTIN 300 MG CAP PO SCH (09:00)
[2018-07-10 09:08] LABS: Hematocrit 25.9 % (36.0-45.0)
--- NOTE | 2018-07-10 09:53 | P.DS ---
Admission Date: 07/09/18 Discharge Date: 07/10/18 Primary Care Provider: Dr. Maxim Parikh; GI-Dr. Dempsey; Fruit [employer] Operator-[facility] Disposition: ROUTINE DISCHARGE Discharge Condition: GOOD Reason for Admission: anemia Consultations: none Procedures: Medical Problem List: Acute on chronic anemia with severe iron deficiency Menorrhagia Graves disease Brief History of Present Illness: 22-year-old female presented emergency room with acute on chronic anemia. Patient had been seen by her PCP. She was sent to the ER for transfusion. Patient denied any significant bleeding from the rectum, melena, hematemesis. Patient with history of irregular periods. Hospital Course: Patient presented with acute on chronic anemia. Patient with severe iron deficiency. Patient not taking medication-iron at home. Patient has been worked up by GI locally. This included an EGD and colonoscopy which has been unremarkable. She is to have a pill camera capsule as an outpatient. The patient also reports having irregular periods. She is seen by [facility] gynecology. She reports that her periods are irregular but not heavy. Patient admits not taking any iron medication. Patient was admitted and given 1 unit of blood. Hemoglobin stable this time. Patient without any significant signs of bleeding. Education on iron deficiency anemia addressed in detail. Recommend to start oral iron-325 mg 1 pill 3 times a day. Recommend to recheck CBC and iron in 2-4 weeks to monitor her progress. If the patient does not tolerate oral iron medication then IV iron can be arranged as an outpatient. If further transfusion is required in the future this can also be arranged as an outpatient. No need for hospitalization for transfusion. Recommendation is for the patient to follow up with GI to complete her GI workup with pill camera capsule as an outpatient. Will also recommend that she follow up with gynecology closely as the patient may require control medication for better control of her menses. Recommend to follow up with her PCP within 1 week. Patient with history of Graves disease. Will recommend that her PCP send her to Endocrinology for further evaluation and treatment. Patient will likely require thyroid uptake scan for further evaluation. Patient may eventually need thyroid ablation therapy. Education provided. Vital Signs/Physical Exam: Temp Pulse Resp BP Pulse Ox 97.5 F 67 14 107/69 96 07/10/18 08:00 07/10/18 08:00 07/10/18 08:00 07/10/18 08:00 07/10/18 08:00 General: Alert, In no apparent distress, Oriented x3, Cooperative HEENT: Atraumatic Neck: Supple Respiratory: Clear to auscultation bilaterally, Normal air movement Cardiovascular: Normal pulses, Regular rate/rhythm Gastrointestinal: Normal bowel sounds, Soft and benign, Non-distended, No tenderness, No masses, No rebound, No guarding Musculoskeletal: No erythema, No tenderness, No warmth Integumentary: No tenderness/swelling, No erythema, No warmth, No cyanosis Neurological: Normal speech, Normal strength at 5/5 x4 extr, Normal tone, Normal affect Laboratory Data at Discharge: Hgb 7.6 g/dL (12.0-15.0) L* 07/10/18 08:45 Hct 25.9 % (36.0-45.0) L 07/10/18 08:45 Home Medications: Gabapentin 600 mg PO DAILY 07/09/18 Hydroxyzine HCl [Atarax] 10 mg PO DAILY PRN 07/09/18 Ferrous Sulfate [Iron] 325 mg PO TID #90 tablet 07/10/18 New Medications: Ferrous Sulfate [Iron] 325 mg PO TID #90 tablet Patient Discharge Instructions: 1. Recommend a follow up with a PCP within 1 week. 2. Patient presented with acute on chronic anemia. Patient with severe iron deficiency. Patient not taking medication-iron at home. Patient has been worked up by GI locally. This included an EGD and colonoscopy which has been unremarkable. She is to have a pill camera capsule as an outpatient. The patient also reports having irregular periods. She is seen by [facility] gynecology. She reports that her periods are irregular but not heavy. Patient admits not taking any iron medication. Patient was admitted and given 1 unit of blood. Hemoglobin stable this time. Patient without any significant signs of bleeding. Education on iron deficiency anemia addressed in detail. Recommend to start oral iron-325 mg 1 pill 3 times a day. Recommend to recheck CBC and iron in 2-4 weeks to monitor her progress. If the patient does not tolerate oral iron medication then IV iron can be arranged as an outpatient. If further transfusion is required in the future this can also be arranged as an outpatient. No need for hospitalization for transfusion. Recommendation is for the patient to follow up with GI to complete her GI workup with pill camera capsule as an outpatient. Will also recommend that she follow up with gynecology closely as the patient may require control medication for better control of her menses. Recommend to follow up with her PCP within 1 week. 3. Patient with history of Graves disease. Will recommend that her PCP send her to Endocrinology for further evaluation and treatment. Patient will likely require thyroid uptake scan for further evaluation. Patient may eventually need thyroid ablation therapy. Education provided. Diet: AHA Activity: Ad clay Time spent managing pt's care (in minutes): 55
== END 2018-07-10 11:45 | disposition home or self-care (01) ==
LOC: ER 19:23 → ERHOLD 22:23 → 2ND 22:48
PROVIDERS: ADMIT Internal Medicine; ATTEND Family Medicine
PROC: 30233N1 Transfusion of Nonautologous Red Blood Cells into Peripheral Vein, Percutaneous Approach (ICD-10-PCS; principal; 2018-07-09)
DX: D50.8 Other iron deficiency anemias (principal); E05.00 Thyrotoxicosis with diffuse goiter without thyrotoxic crisis or storm; N92.0 Excessive and frequent menstruation with regular cycle; F41.9 Anxiety disorder, unspecified; N83.209 Unspecified ovarian cyst, unspecified side; Z72.0 Tobacco use; Z88.5 Allergy status to narcotic agent; Z88.6 Allergy status to analgesic agent
CPT/HCPCS: 36415; 82728; 83540; 84466; 85014; 85018; 86850; 86900; 86901; 99285; P9016

== ENCOUNTER 2022-11-23 14:01 | Emergency (ER) | payer OTHER ==
--- OUTSIDE RECORDS SUMMARY | 2022-11-23 14:37 | XMS REPORT | Continuity of Care Document ---
:1995 Author Organization [facility] t Address [address] [facility] [address] [place] [address] Care Team Providers Name Role Phone Maxim Parikh Attending Clinician Unavailable eCdric Martin Attending Clinician Unavailable ANGELIA Attending Clinician Unavailable Provider, [facility] Attending Clinician Unavailable Shanon Parisi Attending Clinician Elie Harley PA-C Attending Clinician Lab, [facility] I Attending Clinician Unavailable LUIS HERNANDEZ Attending Clinician Unavailable Tai Ruiz MD Attending Clinician TIN REBOLLAR Attending Clinician Unavailable Faculty, Nick Irene naeem Attending Clinician Unavailable Tin Rebollar MD Attending Clinician Doctor Unassigned, Benoit Attending Clinician Unavailable Kemi Quintanilla RN Attending Clinician Unavailable Marciano Aguilar Attending Clinician MARCIANO MOE Attending Clinician Unavailable LUCIANA CASTELAN Attending Clinician Unavailable Cedric Martin Admitting Clinician Unavailable SERGEI_Az Admitting Clinician Unavailable Payers Payer Name Policy Type Policy Number Effective Date Expiration Date Bhargav corrigan [facility] [id number] 2019 Common CHOICE 00:00:00 [facility] [id number] 2019 Common CHOICE 00:00:00 [facility] [id number] 2019 Common CHOICE 00:00:00 [facility] HICKS [id number] 2019 HEALTHCARE 00:00:00 MEDICAID [facility] [id number] 2019 Common CHOICE 00:00:00 [facility] MEDICAID [id number] 2019 [place] 00:00:00 Problems Condition Condition Condition Status Onset Resolution Last Treating Co mments Source Name Details Category Date Date Treatment Clinician Date Cellulitis Cellulitis Disease Active 2020-0 U nivers of right of right 5-28 ity of thigh thigh 00:00: [place] 00 Medical Branch Insect Insect Disease Active 2020-0 Univers bite of bite of 5-28 ity of right right 00:00: [place] thigh, thigh, 00 Medical initial initial Branch encounter encounter Pain in Pain in Disease Active 2020-0 Univers right right 5-28 ity of thigh thigh 00:00: [place] 00 Medical Branch 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 4-22 ity of 00:[place]: [place] [facility] Multiparit Multiparit Disease Active 2020-0 U nivers y y 4-22 ity of 00:00: [place] [facility] Restless Restless Disease Active 2020-0 Unive rs leg leg 4-22 ity of syndrome syndrome 00:00: [place] [facility] BMI BMI Disease Active 2020-0 Univers 25.0-25.9, 25.0-25.9, 4-22 it y of adult adult 00:00: [place] [facility] Need for Need for Disease Active 2018-0 Unive rs HPV HPV 4-06 ity of vaccinatio [place] Hyperthyro Hyperthyro Disease Active 2017-0 U nivers idism idism 3-02 ity of 00:00: [place] 00 Medical Branch Iron Iron Disease Active Univers deficiency deficiency - it y of anemia anemia 00:00: Medical Branch Nexplanon Nexplanon Disease Active Overview: Univers in place in place -09/19/18 - ity of 00:00: Nexplanon [place] 00 removed Medical Branch Anemia of Anemia of Disease Active Uni vers mother in mother in 4-05 [place] of , , [place] ante[place] antepartum 00 Me dical Branch Supervisio Supervisio Disease Active 2013-03 U nivers n of high n of high 0-01 ity of risk risk 00:00: [place] , , 00 Me dical antepartum antepartum Br anch Low TSH Low TSH Disease Active 2013-03 Univers level level 0-01 ity of 00:00: [place] 00 Medical Branch [id number] Allergic Problem Active Commo n rhinitis, [facility], Medical unspecifie Center d trigger [id number] Iron Problem Active Common deficiency Spirit anemia - [facility] secondary [facility] inadequate Medica l dietary Center iron intake [id number] Tobacco Problem Active Commo n use Spirit disorder - [facility] [id number] Generalize Problem Active Com mon d anxiety Spirit disorder - [facility] [id number] Current Problem Active Common moderate Spirit episode of - [facility] major [facility] disorder Medical without Center prior episode [id number] Graves' Problem Active Commo n disease Spirit - [facility] Allergies, Adverse Reactions, Alerts Allergy Allergy Status Severity Reaction(s) Onset Inactive Treating Comm ents Source Name Type Date Date Clinician hydrocod DA Active U 2019-1 [facility] [place] acetamin DA Active U 2019-1 [facility] ophen [facility]-16 [facility] [place] hydrocod DA Active U RASH-HIVES 2019-1 [facility] one 2-16 [facility] [place] acetamin DA Active U RASH-HIVES 2019-1 [facility] ophen 2-16 [facility] [place] LORATAB DA Active MA HIVES 2020-0 [facility] 6-18 [facility] 00:[facility]: [facility] [place] Hydrocod Propensi Active Hives 2013-03 Univer s one-Acet ty to 0-01 ity of aminophe adverse 00:00: [place] n reaction 00 Medical s Branch HYDROCOD DRUG Active Hives 2013-03 Univers ONE-ACET 0-01 ity of AMINOPHE 00:00: [place] N 00 Medical Branch acetamin acetamin Active hives Common ophen / ophen / Spirit hydrocod hydrocod - [facility] one one [facility] Social History Social Habit Start Date Stop Date Quantity Comments Source ASSERTION 2019-06-25 University 00:00:00 [facility] History of Current Smoker Common Spi rit - Tobacco Use [facility] Sex Assigned At Common Sp bernadette - [facility] Exposure to Not sure [facility] SARS-CoV-2 [facility] (event) Branch Tobacco use and 2020-02-24 2020-02-24 Never used Universit y of exposure 00:00:00 00:00:00 [facility] Alcohol intake 2020-02-24 2020-02-24 Current University 00:00:00 00:00:00 non-drinker of [facility] alcohol Branch (finding) Smoking Status Start Date Stop Date Source Current Smoker 2020-04-20 00:00:00 Common Spiri t - [facility] Never smoker [facility] Medications Ordered Filled Start Stop Current Ordering Indication Dosage Frequency Signature Comments Components Source Medication Medication Date Date Medication? Clinician (SIG) Name Name acetaminoph Yes [id number] 650mg Take 1 Univers en 650 mg 5-28 9107 tablet by ity o f CR tablet 00:00: mouth every 8 Medical (eight) Branch hours as needed for Pain or Fever. cephALEXin 2019- Yes [id number] 500mg Take 1 Univers (KEFLEX) 5-28 [id number] capsule by ity of 500 mg 00:00: mouth 4 [place] capsule 00 (four) Medical times Branch daily. mupirocin 2 2019- Yes [id number] Apply to Univers % ointment 5-28 area(s) 3 ity of 00:00: (three) [place] 00 times Medical daily. Branch acetaminoph Yes [id number] 650mg Take 1 Univers en 650 mg 5-28 9107 tablet by ity o f CR tablet 00:00: mouth [place] 00 every 8 Medical (eight) Branch hours as needed for Pain or Fever. cephALEXin 2020-0 Yes [id number] 500mg Take 1 Univers (KEFLEX) 5-28 [id number] capsule by ity of 500 mg 00:00: mouth 4 [place] capsule 00 (four) Medical times Branch daily. mupirocin 2 2020-0 Yes [id number] Apply to Univers % ointment 5-28 area(s) 3 ity of 00:00: (three) [place] 00 times Medical daily. Branch acetaminoph 2020-0 Yes [id number] 650mg Take 1 Univers en 650 mg 5-28 9107 tablet by ity o f CR tablet 00:00: mouth [place] 00 every 8 Medical (eight) Branch hours as needed for Pain or Fever. cephALEXin 2020-0 Yes [id number] 500mg Take 1 Univers (KEFLEX) 5-28 [id number] capsule by ity of 500 mg 00:00: mouth 4 [place] capsule 00 (four) Medical times Branch daily. mupirocin 2 2020-0 Yes [id number] Apply to Univers % ointment 5-28 area(s) 3 ity of 00:00: (three) [place] 00 times Medical daily. Branch acetaminoph 2020-0 Yes [id number] 650mg Take 1 Univers en 650 mg 5-28 9107 tablet by ity o f CR tablet 00:00: mouth [place] 00 every 8 Medical (eight) Branch hours as needed for Pain or Fever. cephALEXin 2020-0 Yes [id number] 500mg Take 1 Univers (KEFLEX) 5-28 [id number] capsule by ity of 500 mg 00:00: mouth 4 [place] capsule 00 (four) Medical times Branch daily. mupirocin 2 2020-0 Yes [id number] Apply to Univers % ointment 5-28 area(s) 3 ity of 00:00: (three) [place] 00 times Medical daily. Branch acetaminoph 2020-0 Yes [id number] 650mg Take 1 Univers en 650 mg 5-28 9107 tablet by ity o f CR tablet 00:00: mouth [place] 00 every 8 Medical (eight) Branch hours as needed for Pain or Fever. cephALEXin 2020-0 Yes [id number] 500mg Take 1 Univers (KEFLEX) 5-28 [id number] capsule by ity of 500 mg 00:00: mouth 4 [place] capsule 00 (four) Medical times Branch daily. mupirocin 2 2020-0 Yes [id number] Apply to Univers % ointment 528 area(s) 3 ity of 00:00: (three) [place] 00 times Medical daily. Branch foLIC acid 2020-0 Yes [id number] 1mg Take 1 Univers 1 mg tablet 4-23 tablet by ity of 00:00: mouth [place] 00 daily. Medical Branch foLIC acid 2020-0 Yes [id number] 1mg Take 1 Univers 1 mg tablet 4-23 tablet by ity of 00:00: mouth [place] 00 daily. Medical Branch foLIC acid 2020-0 Yes [id number] 1mg Take 1 Univers 1 mg tablet 4-23 tablet by ity of 00:00: mouth [place] 00 daily. Medical Branch foLIC acid 2020-0 Yes [id number] 1mg Take 1 Univers 1 mg tablet 4-23 tablet by ity of 00:00: mouth [place] 00 daily. Medical Branch foLIC acid 2020-0 Yes [id number] 1mg Take 1 Univers 1 mg tablet 4-23 tablet by ity of 00:00: mouth [place] 00 daily. Medical Branch foLIC acid 2020-0 Yes [id number] 1mg Take 1 Univers 1 mg tablet 4-23 tablet by ity of 00:00: mouth [place] 00 daily. Medical Branch foLIC acid 2020-0 Yes [id number] 1mg Take 1 Univers 1 mg tablet 4-23 tablet by ity of 00:00: mouth [place] 00 daily. Medical Branch foLIC acid 2020-0 Yes [id number] 1mg Take 1 Univers 1 mg tablet 4-23 tablet by ity of 00:00: mouth [place] 00 daily. Medical Branch foLIC acid 2020-0 Yes [id number] 1mg Take 1 Univers 1 mg tablet 4-23 tablet by ity of 00:00: mouth [place] 00 daily. Medical Branch 2020-0 2020- No Take by Unive rs VIT/IRON -07-15 mouth. ity of FUMARATE/FA 17:54: 00:00 [place] ( 53 :00 Medical ORAL) Branch HYDROXYZINE 2020-0 2020- No Take by Un poncho HCL ORAL -07-15 mouth. ity of 17:54: 00:00 [place] 41 :00 Medical Branch GABAPENTIN 2020-0 Yes 600mg Take 600 Un poncho ORAL 4-22 mg by ity of 15:36: mouth. [place] 27 Medical Branch GABAPENTIN 2020-0 Yes 600mg Take 600 Un pon[place] ORAL 4-22 mg by ity of 15:36: mouth. [address] GABAPENTIN 2020-0 Yes 600mg Take 600 Un pon[place] ORAL 4-22 mg by ity of 15:36: mouth. [address] GABAPENTIN 2020-0 Yes 600mg Take 600 Un poncho ORAL 4-22 mg by ity of 15:36: mouth. [address] GABAPENTIN 2020-0 Yes 600mg Take 600 Un pon[place] ORAL 4-22 mg by ity of 15:36: mouth. [address] GABAPENTIN 2020-0 Yes 600mg Take 600 Un pon[place] ORAL 4-22 mg by ity of 15:36: mouth. [address] GABAPENTIN 2020-0 Yes 600mg Take 600 Un [place] ORAL 4-22 mg by ity of 15:36: mouth. [address] GABAPENTIN 2020-0 Yes 600mg Take 600 Un [place] ORAL 4-22 mg by ity of 15:36: mouth. [address] GABAPENTIN 2020-0 Yes 600mg Take 600 Un [place] ORAL 4-22 mg by ity of 15:36: mouth. [address] GABAPENTIN 2020-0 Yes 600mg Take 600 Un [place] ORAL 4-22 mg by ity of 15:36: mouth. [address] GABAPENTIN 2020-0 Yes 600mg Take 600 Un pon[place] ORAL 4-22 mg by ity of 15:36: mouth. [address] GABAPENTIN 2020-0 Yes 600mg Take 600 Un pon[place] ORAL 4-22 mg by ity of 15:36: mouth. [address] GABAPENTIN 2020-0 Yes 600mg Take 600 Un pon[place] ORAL 4-22 mg by ity of 15:36: mouth. [address] 2020-0 Yes [id number] 1{packe Take 1 Univers vit 4-22 t} Packet by ity of 33-iron-fol 00:00: mouth [place] ic-dha 00 daily. Medical (SELECT-OB Branch + DHA) 29 mg iron-1 mg -250 mg combo pack 2020-0 Yes [id number] 1{packe Take 1 Univers vit 4-22 t} Packet by ity of 33-iron-fol 00:00: mouth [place] ic-dha 00 daily. Medical (SELECT-OB Branch + DHA) 29 mg iron-1 mg -250 mg combo pack 2020-0 Yes [id number] 1{packe Take 1 Univers vit 4-22 t} Packet by ity of 33-iron-fol 00:00: mouth [place] ic-dha 00 daily. Medical (SELECT-OB Branch + DHA) 29 mg iron-1 mg -250 mg combo pack 2020-0 Yes [id number] 1{packe Take 1 Univers vit 4-22 t} Packet by ity of 33-iron-fol 00:00: mouth [place] ic-dha 00 daily. Medical (SELECT-OB Branch + DHA) 29 mg iron-1 mg -250 mg combo pack 2020-0 Yes [id number] 1{packe Take 1 Univers vit 4-22 t} Packet by ity of 33-iron-fol 00:00: mouth [place] ic-dha 00 daily. Medical (SELECT-OB Branch + DHA) 29 mg iron-1 mg -250 mg combo pack 2020-0 Yes [id number] 1{packe Take 1 Univers vit 4-22 t} Packet by ity of 33-iron-fol 00:00: mouth [place] ic-dha 00 daily. Medical (SELECT-OB Branch + DHA) 29 mg iron-1 mg -250 mg combo pack 2020-0 Yes [id number] 1{packe Take 1 Univers vit 4-22 t} Packet by ity of 33-iron-fol 00:00: mouth [place] ic-dha 00 daily. Medical (SELECT-OB Branch + DHA) 29 mg iron-1 mg -250 mg combo pack 2020-0 Yes [id number] 1{packe Take 1 Univers vit 4-22 t} Packet by ity of 33-iron-fol 00:00: mouth [place] ic-dha 00 daily. Medical (SELECT-OB Branch + DHA) 29 mg iron-1 mg -250 mg combo pack 2020-0 Yes [id number] 1{packe Take 1 Univers vit 4-22 t} Packet by ity of 33-iron-fol 00:00: mouth [place] ic-dha 00 daily. Medical (SELECT-OB Branch + DHA) 29 mg iron-1 mg -250 mg combo pack 2020-0 Yes [id number] 1{packe Take 1 Univers vit 4-22 t} Packet by ity of 33-iron-fol 00:00: mouth [place] ic-dha 00 daily. Medical (SELECT-OB Branch + DHA) 29 mg iron-1 mg -250 mg combo pack 2020-0 Yes [id number] 1{packe Take 1 Univers vit 4-22 t} Packet by ity of 33-iron-fol 00:00: mouth [place] ic-dha 00 daily. Medical (SELECT-OB Branch + DHA) 29 mg iron-1 mg -250 mg combo pack Yes [id number] 1{packe Take 1 Univers vit 4-22 t} Packet by ity of 33-iron-fol 00:00: mouth [place] ic-dha 00 daily. Medical (SELECT-OB Branch + DHA) 29 mg iron-1 mg -250 mg combo pack Yes [id number] 1{packe Take 1 Univers vit 4-22 t} Packet by ity of 33-iron-fol 00:00: mouth [place] ic-dha 00 daily. Medical (SELECT-OB Branch + DHA) 29 mg iron-1 mg -250 mg combo pack HYDROXYZINE Yes Take by Uni vers HCL ORAL 6-27 mouth. ity of 18:32: [place] 00 Medical Branch GABAPENTIN Yes Take by Univ ers ORAL 6-27 mouth. ity of 18:32: [place] [facility] HYDROXYZINE Yes Take by Uni vers HCL ORAL 6-27 mouth. ity of 18:32: [place] 00 Medical Branch GABAPENTIN Yes Take by Univ ers ORAL 6-27 mouth. ity of 18:32: [place] 00 Medical Branch norgestimat 0 Yes [id number] 1{tbl} Take 1 Univers e-ethinyl 6-27 tablet by ity o f estradiol 00:00: mouth [place] 0.25-35 00 daily. Medical mg-mcg per Branch tablet norgestimat 20190 Yes [id number] 1{tbl} Take 1 Univers e-ethinyl 6-27 tablet by ity o f estradiol 00:00: mouth [place] 0.25-35 00 daily. Medical mg-mcg per Branch tablet norgestimat 2019-0 2020- No [id number] 1{tbl} Take 1 Univers e-ethinyl 6-27 04-22 tablet by ity of estradiol 00:00: 00:00 mouth [place] 0.25-35 00 :00 daily. Medical mg-mcg per Branch tablet levocetiriz 0 Yes 5mg Take 1 Univ ers ine 5 mg 1-04 tablet by ity of tablet 00:00: mouth [place] 00 every Medical evening. Branch levocetiriz Yes 5mg Take 1 Univ ers ine 5 mg 1-04 tablet by ity of tablet 00:00: mouth [place] 00 every Medical evening. Branch levocetiriz 2019- No 5mg Take 1 Uni vers ine 5 mg 1-06 27- tablet by ity o f tablet 00:00: 00:00 mouth [place] 00 :00 every Medical evening. Branch methIMAzole Yes [id number] 5mg Take 1 Univers 5 mg tablet 4-20 tablet by ity of 00:00: mouth [place] 00 daily. Medical Branch methIMAzole Yes [id number] 5mg Take 1 Univers 5 mg tablet 4-20 tablet by ity of 00:00: mouth [place] 00 daily. Medical Branch methIMAzole 2019- No [id number] 5mg Take 1 Univers 5 mg tablet -20 - tablet by it y of 00:00: 00:00 mouth [place] 00 :00 daily. Medical Branch Yes Take by Univer s VIT/IRON 3-03 mouth. ity of FUMARATE/FA 23:18: [place] ( 32 Medical ORAL) Branch Yes Take by Univer s VIT/IRON 3-03 mouth. ity of FUMARATE/FA 23:18: [place] ( 32 Medical ORAL) Branch atenolol Yes 25mg Take 1 Univ ers mg tablet -02 tablet by ity o f 00:00: mouth [place] 00 daily. Medical Check your Branch pulse daily and if > 80 beat per min take one tab atenolol Yes 25mg Take 1 Univ ers mg tablet 3-02 tablet by ity o f 00:00: mouth [place] 00 daily. Medical Check your Branch pulse daily and if > 80 beat per min take one tab atenolol 2019- No 25mg Take 1 Uni vers mg tablet -04 29- tablet by ity of 00:00: 00:00 mouth [place] 00 :00 daily. Medical Check your Branch pulse daily and if > 80 beat per min take one tab HydrOXYzine HydrOXYzine No HydrOXYzin Pamoate 50 Pamoate 50 e Pamoate MG MG 50 MG Gabapentin Gabapentin No 1{capsu TID Gabapentin 600 MG 600 MG le} 600 MG Ferrous Ferrous No 1{table BID Ferrous Sulfate 324 Sulfate 324 t} Sulfate (65 Fe) MG (65 Fe) MG 324 (65 Fe) MG HydrOXYzine HydrOXYzine No HydrOXYzin Pamoate 50 Pamoate 50 e Pamoate MG MG 50 MG Gabapentin Gabapentin No 1{capsu TID Gabapentin 600 MG 600 MG le} 600 MG Ferrous Ferrous No 1{table BID Ferrous Sulfate 324 Sulfate 324 t} Sulfate (65 Fe) MG (65 Fe) MG 324 (65 Fe) MG HydrOXYzine HydrOXYzine No HydrOXYzin Common Pamoate 50 Pamoate 50 e Pamoate Spirit MG MG 50 MG - [facility] Ferrous Ferrous No 1{table BID Ferrous Com mon Sulfate 324 Sulfate 324 t} Sulfate Spirit (65 Fe) MG (65 Fe) MG 324 (65 - [facility] Fe) MG [facility] Gabapentin Gabapentin No 1{capsu TID Gabapentin Common 600 MG 600 MG le} 600 MG [facility] HydrOXYzine HydrOXYzine No HydrOXYzin Pamoate 50 Pamoate 50 e Pamoate MG MG 50 MG Ferrous Ferrous No 1{table BID Ferrous Sulfate 324 Sulfate 324 t} Sulfate (65 Fe) MG (65 Fe) MG 324 (65 Fe) MG Gabapentin Gabapentin No 1{capsu TID Gabapentin 600 MG 600 MG le} 600 MG Gabapentin Gabapentin Yes Maxim 1 capsule Common Parikh [facility] HydrOXYzine HydrOXYzine Yes Maxim as Common [place]amoate Parikh directed Spir it [facility] Ferrous Ferrous Yes Maxim 1 tablet Com mon Sulfate Sulfate Parikh [facility] Methimazole Methimazole Yes Maxim 1 tablet Common Parikh with food [facility] Immunizations Ordered Filled Immunization Date Status Comments Sourc e Immunization Name Name Afluria Afluria 2018-07-02 Completed [facility] - 09:53:00 [facility] Afluria Afluria 2018-07-02 Completed [facility] - 09:53:00 [facility] Afluria Afluria 2018-07-02 Completed [facility] - 09:53:00 [facility] Afluria Afluria 2018-07-02 Completed [facility] - 09:53:00 [facility] Afluria Afluria 2018-07-02 Completed [facility] - 00:00:00 [facility] HPV9 2017-06-29 Completed University of 00:00:00 [place] [facility] HPV9 2017-06-29 Completed University of 00:00:00 [place] [facility] HPV9 2017-06-29 Completed University of 00:00:00 [place] [facility] HPV9 2017-06-29 Completed University of 00:00:00 [place] [facility] HPV9 2017-06-29 Completed University of 00:00:00 [place] [facility] HPV9 2017-06-29 Completed University of 00:00:00 [place] [facility] HPV9 2017-06-29 Completed University of 00:00:00 [place] [facility] HPV9 2017-06-29 Completed University of 00:00:00 [place] [facility] HPV9 2017-06-29 Completed University of 00:00:00 [place] [facility] HPV9 2017-06-29 Completed University of 00:00:00 [place] [facility] HPV9 2017-06-29 Completed University of 00:00:00 [place] [facility] HPV9 2017-06-29 Completed University of 00:00:00 [place] [facility] HPV9 2017-06-29 Completed University of 00:00:00 [place] [facility] HPV9 2017-06-29 Completed University of 00:00:00 [place] [facility] HPV9 2017-06-29 Completed University of 00:00:00 [place] [facility] HPV9 2016-09-07 Completed University of 00:00:00 [place] [facility] HPV9 2016-09-07 Completed University of 00:00:00 [place] [facility] HPV9 2016-09-07 Completed University of 00:00:00 [place] [facility] HPV9 2016-09-07 Completed University of 00:00:00 [place] [facility] HPV9 2016-09-07 Completed University of 00:00:00 [place] [facility] HPV9 2016-09-07 Completed University of 00:00:00 [place] [facility] HPV9 2016-09-07 Completed University of 00:00:00 [place] [facility] HPV9 2016-09-07 Completed University of 00:00:00 [place] [facility] HPV9 2016-09-07 Completed University of 00:00:00 [place] [facility] HPV9 2016-09-07 Completed University of 00:00:00 [place] [facility] HPV9 2016-09-07 Completed University of 00:00:00 [place] [facility] HPV9 2016-09-07 Completed University of 00:00:00 [place] [facility] HPV9 2016-09-07 Completed University of 00:00:00 [facility] HPV9 2016-09-07 Completed University of 00:00:00 [facility] HPV9 2016-09-07 Completed University of 00:00:00 [facility] Tdap 2015-05-21 Completed University of 00:00:00 [facility] Influenza Virus 2015-05-21 Completed Universit y of Vaccine Quad IM 3+ 00:00:00 [facility] Tdap 2015-05-21 Completed University of 00:00:00 [facility] Influenza Virus 2015-05-21 Completed Universit y of Vaccine Quad IM 3+ 00:00:00 [facility] Tdap 2015-05-21 Completed University of 00:00:00 [facility] Influenza Virus 2015-05-21 Completed Universit y of Vaccine Quad IM 3+ 00:00:00 [facility] Tdap 2015-05-21 Completed University of 00:00:00 [facility] Influenza Virus 2015-05-21 Completed Universit y of Vaccine Quad IM 3+ 00:00:00 [facility] Tdap 2015-05-21 Completed University of 00:00:00 [facility] Influenza Virus 2015-05-21 Completed Universit y of Vaccine Quad IM 3+ 00:00:00 [facility] Tdap 2015-05-21 Completed University of 00:00:00 [facility] Influenza Virus 2015-05-21 Completed Universit y of Vaccine Quad IM 3+ 00:00:00 [facility] Tdap 2015-05-21 Completed University of 00:00:00 [facility] Influenza Virus 2015-05-21 Completed Universit y of Vaccine Quad IM 3+ 00:00:00 [facility] TDAP 2015-05-21 Completed University of 00:00:00 [facility] Influenza Virus 2015-05-21 Completed Universit y of Vaccine Quad IM 3+ 00:00:00 [facility] TDAP 2015-05-21 Completed University of 00:00:00 [facility] Influenza Virus 2015-05-21 Completed Universit y of Vaccine Quad IM 3+ 00:00:00 [facility] Tdap 2015-05-21 Completed University of 00:00:00 [facility] TDAP 2015-05-21 Completed University of 00:00:00 [facility] Influenza Virus 2015-05-21 Completed Universit y of Vaccine Quad IM 3+ 00:00:00 [facility] Influenza Virus 2015-05-21 Completed Universit y of Vaccine Quad IM 3+ 00:00:00 [facility] Tdap 2015-05-21 Completed University of 00:00:00 [facility] Influenza Virus 2015-05-21 Completed Universit y of Vaccine Quad IM 3+ 00:00:00 [facility] Tdap 2015-05-21 Completed University of 00:00:00 [facility] Influenza Virus 2015-05-21 Completed Universit y of Vaccine Quad IM 3+ 00:00:00 [facility] Tdap 2015-05-21 Completed University of 00:00:00 [facility] Influenza Virus 2015-05-21 Completed Universit y of Vaccine Quad IM 3+ 00:00:00 [facility] Tdap 2015-05-21 Completed University of 00:00:00 [facility] Influenza Virus 2015-05-21 Completed Universit y of Vaccine Quad IM 3+ 00:00:00 [facility] Vital Signs Vital Name Observation Time Observation Value Comments Source height 2020-04-20 10:40:00 64 [in_i] [facility] weight 2020-04-20 10:40:00 147.1 [lb_av] [facility] temperature 2020-04-20 10:40:00 97.2 [degF] [facility] bmi 2020-04-20 10:40:00 25.25 kg/m2 [facility] oximetry 2020-04-20 10:40:00 100 % [facility] respiratory rate 2020-04-20 10:40:00 16 /min Comm on [facility] blood pressure 2020-04-20 10:40:00 119 mm[Hg] Common [facility] systolic [facility] blood pressure 2020-04-20 10:40:00 76 mm[Hg] Common [facility] diastolic [facility] Systolic blood 2020-02-24 20:45:00 114 mm[Hg] Univer sity of pressure [facility] Diastolic blood 2020-02-24 20:45:00 71 mm[Hg] Unive rsity of pressure [facility] Heart rate 2020-02-24 20:45:00 81 /min [facility]i [facility] [facility] Body temperature 2020-02-24 20:45:00 36.94 Samara [facility] Respiratory rate 2020-02-24 20:45:00 16 /min [facility] Body height 2020-02-24 20:45:00 162.6 cm [facility] Body weight 2020-02-24 20:45:00 76.658 kg [facility] BMI 2020-02-24 20:45:00 29.01 kg/m2 [facility] Oxygen saturation in 2020-02-24 20:45:00 98 /min University of Arterial blood by [facility] Pulse oximetry Branch Systolic blood 2020-02-24 20:45:00 114 mm[Hg] Univer sity of pressure [facility] Diastolic blood 2020-02-24 20:45:00 71 mm[Hg] Unive rsity of [facility] Heart rate 2020-02-24 20:45:00 81 /min [facility] Body temperature 2020-02-24 20:45:00 36.94 Samara [facility] Respiratory rate 2020-02-24 20:45:00 16 /min [facility] Body height 2020-02-24 20:45:00 162.6 cm [facility] Body weight 2020-02-24 20:45:00 76.658 kg [facility] BMI 2020-02-24 20:45:00 29.01 kg/m2 [facility] Oxygen saturation in 2020-02-24 20:45:00 98 /min [facility] Arterial blood by [facility] Pulse oximetry Branch height 2020-02-05 15:00:00 64 [in_i] Common [facility] weight 2020-02-05 15:00:00 150 [lb_av] Common [facility] bmi 2020-02-05 15:00:00 25.74 kg/m2 Common [facility] Systolic blood 2019-08-21 14:42:00 108 mm[Hg] Univer [facility]ity [facility] pressure [facility] Diastolic blood 2019-08-21 14:42:00 66 mm[Hg] [facility] Heart rate 2019-08-21 14:42:00 85 /min [facility] Body temperature 2019-08-21 14:42:00 37.22 Samara [facility] Body weight 2019-08-21 14:42:00 65.318 kg [facility] BMI 2019-08-21 14:42:00 24.72 kg/m2 [facility] Oxygen saturation in 2019-08-21 14:42:00 99 /min [facility] Arterial blood by [facility] Pulse oximetry Branch Systolic blood 2019-08-21 14:42:00 108 mm[Hg] [facility] Diastolic blood 2019-08-21 14:42:00 66 mm[Hg] [facility]ive [facility] Heart rate 2019-08-21 14:42:00 85 /min [facility] Body temperature 2019-08-21 14:42:00 37.22 Samara [facility] Body weight 2019-08-21 14:42:00 65.318 kg [facility] BMI 2019-08-21 14:42:00 24.72 kg/m2 [facility] Oxygen saturation in 2019-08-21 14:42:00 99 /min [facility] Arterial blood by [facility] Pulse oximetry Branch Systolic blood 2019-07-16 15:22:00 122 mm[Hg] [facility] Diastolic blood 2019-07-16 15:22:00 83 mm[Hg] [facility]ive [facility] Heart rate 2019-07-16 15:22:00 84 /min [facility] Body temperature 2019-07-16 15:22:00 36.72 Samara [facility] Respiratory rate 2019-07-16 15:22:00 16 /min [facility] Body height 2019-07-16 15:22:00 162.6 cm [facility] Body weight 2019-07-16 15:22:00 66.792 kg [facility] BMI 2019-07-16 15:22:00 25.28 kg/m2 [facility] Procedures Procedure Date / Time Performed Performing Clinician Zenobia e [id number] 2020-03-10 00:00:00 [facility] [id number] 2020-03-10 00:00:00 [facility] [id number] 2020-03-10 00:00:00 [facility] POCT FLU A AND B 2020-02-24 21:06:00 Shanon Shankar [facility] ([facility]) [facility] POCT URINALYSIS 2019-07-16 15:25:00 Marciano Moe [facility] POCT TEST 2019-07-16 15:25:00 Marciano Moe [facility] ASSIGNMENT OF BENEFITS 2019-07-16 15:00:21 Doctor Unassigned, No [facility] Encounters Start End Encounter Admission Attending Care Care Encounter Source Date/Time Date/Time Type Type Clinicians Facility Department ID 2022-10-30 Outpatient Parikh, STLMLC STLMLC [id number] Common 10:08:00 Maxim [id number] [facility] 2022-10-10 Outpatient Parikh, STLMLC STLMLC [id number] Common 14:40:00 Maxim [id number] [facility] 2022-10-06 Outpatient Parikh, STLMLC STLMLC [id number] Common 10:12:00 Maxim [id number] [facility] 2022-09-12 Outpatient Parikh, STLMLC STLMLC [id number] Common 14:20:00 Maxim [id number] [facility] 2022-06-21 Outpatient Parikh, STLMLC STLMLC [id number] Common 10:39:00 Maxim [id number] [facility] 2022-05-19 Outpatient Parikh, STLMLC STLMLC [id number] Common 11:08:00 Maxim [id number] [facility] 2021-04-20 Outpatient Parikh, STLMLC STLMLC [id number] Common 12:25:24 Maxim [id number] [facility] 2021-04-20 Outpatient Parikh, STLMLC STLMLC [id number] Common 12:04:37 Maxim [id number] [facility] 2021-04-20 Outpatient Parikh, STLMLC STLMLC [id number] Common 11:31:00 Maxim [id number] [facility] 2021-04-20 Outpatient Parikh, STLMLC STLMLC [id number] Common 11:30:56 Maxim [id number] [facility] 2021-04-20 Outpatient Parikh, STLMLC STLMLC [id number] Common 11:29:08 Maxim [id number] [facility] 2021-04-20 Outpatient Parikh, STLMLC STLMLC [id number] Common 11:17:12 Maxim [id number] [facility] 2021-04-20 Outpatient Parikh, STLMLC STLMLC [id number] Common 11:16:58 Maxim [id number] [facility] 2021-04-20 Outpatient Parikh, STLMLC STLMLC [id number] Common 11:16:55 Maxim [id number] [facility] 2020-03-10 Inpatient EL Patolia, [facility] LD [id number] [facility] 13:00:00 Dolar [address] [facility] 2020-02-25 Inpatient Patolia, [facility] JG [id number] [facility] 23:09:00 Dolar [address] [facility] [address] [facility] 2019-09-11 Inpatient Patolia, [facility] JG [id number] [facility] 08:28:00 Dolar [address] [facility] 2022-07-05 2022-07-05 Outpatient SISSON_C [facility] 2022 [place] 00:00:00 00:00:00 0412 [facility] 2020-04-23 2020-04-23 (TEL) STLMLC STLMLC [id number] Co mmon 00:00:00 00:00:00 [facility] 2020-04-20 2020-04-20 PREV VISIT STLMLC STLMLC [id number] Common 00:00:00 00:00:00 EST AGE [facility] 18-39 [facility] 2020-03-23 2020-03-23 (TEL) STLMLC STLMLC [id number] Co mmon 00:00:00 00:00:00 [facility] 2020-02-24 2020-02-24 Urgent Provider, [facility] [id number] 14:37:28 14:57:28 Care [facility] [id number] Care [place] [id number] Professio [phone] [place] [address] [address] One 2020-02-24 2020-02-24 Urgent Provider, [facility] [id number] Univers 14:37:28 14:57:28 Care Anene, [facility] [id number] ity of [place] [id number] Rebel as Professio [phone] Me dical [address] Office Building One 2020-02-24 2020-02-24 Outpatient R [facility] [id number] Univers 14:20:00 14:20:00 ity [facility] 2020-02-05 2020-02-05 OFFICE STLMLC STLMLC [id number] Co mmon 00:00:00 00:00:00 VISIT EST Spir it PT [facility] 3 [facility] 2019-12-08 2019-12-08 [facility] [id number] Common 16:14:00 16:14:[address] [facility] 2019-12-08 2019-12-08 [facility] [id number] Common 08:40:00 08:40:[address] [facility] 2019-12-03 2019-12-03 Out[facility] [id number] Common 06:45:00 06:45:[address] [facility] 2019-12-02 2019-12-02 Out[facility] [id number] Common 08:27:00 08:27:[address] [facility] 2019-12-02 2019-12-02 Out[facility] [id number] Common 08:19:00 08:19:[address] [employer] [facility] 2019-10-06 2019-10-06 Out[facility] [id number] Common 10:30:00 10:30:[address] [facility] 2019-09-24 2019-09-24 Telephone [facility] [id number] 00:00:00 00:00:00 [facility] [id number] [place] [id number] Professio [phone] [place] [address] Office Building [facility] 2019-09-24 2019-09-24 [facility] [id number] [facility] 00:00:00 00:00:00 [facility] [id number] it y of [place] [id number] Rebel as Professio [phone] [address] Office Building [facility] 2019-09-23 2019-09-23 Laboratory Lab, [facility] Fam Pob I [facility] [id number] Univers 10:05:05 10:25:05 Only Raad, [facility] [id number] ity of [place] [id number] Rebel as Professio [phone] [address] Office Building [facility] 2019-09-23 2019-09-23 Laboratory Lab, [facility] [id number] 10:05:05 10:25:05 Only Fam Pob I Health [id number] [place] [id number] Professio [phone] [place] [address] Office [address] One 2019-09-23 2019-09-23 Outpatient R [facility] [id number] Univers 10:00:00 10:00:00 ity [facility] 2019-09-22 2019-09-22 Outpatient R DAVID, [facility] [id number] Univers 13:30:00 13:30:00 LUIS ity [facility] 2019-09-16 2019-09-16 [facility] [id number] Common 11:12:00 11:12:[address] [facility] 2019-09-08 2019-09-08 Outpatient Dandy Martins [id number] Common 08:16:00 08:16:[address] [facility] 2019-09-05 2019-09-05 Outpatient Dandy Dormant [id number] Common 09:00:00 09:00:[address] [facility] 2019-08-21 2019-08-21 Urgent Provider, [facility] [id number] Univers 09:35:51 10:30:[address] [facility] [id number] ity of [place] [id number] Rebel as Professio [phone] Pa dical [address] Office Building [facility] 2019-08-21 2019-08-21 Urgent Provider, [facility] [id number] 09:35:51 10:30:18 Care [facility] [id number] Care [place] [id number] Professio [phone] [address] Building [facility] 2019-08-21 2019-08-21 Outpatient R [facility] [id number] Univers 09:20:00 09:20:00 ity [facility] 2019-08-20 2019-08-20 Outpatient R [facility] [id number] Univers 14:20:00 14:20:00 ity [facility] 2019-08-11 2019-08-11 Outpatient R JULIO [facility] [id number] Univers 10:30:00 10:30:00 TIN ity [facility] 2019-08-11 2019-08-11 Telemedici Faculty, Nick Irene [facility] [id number] Univers 08:31:05 09:01:05 ne Visit Tin Rebollar TOBACCO CHECKOUT CLERK [id number] ity of [facility] [id number] Rebel as MATERNAL [phone] Med ical & CHILD 107 [facility] 2019-07-28 2019-07-28 Patient Doctor [facility] [id number] Univers 00:00:00 00:00:00 Secure Msg Unassigned, TOBACCO CHECKOUT CLERK [id number] ity of [place] [facility] [id number] Rebel as MATERNAL [phone] [facility] ical & CHILD [address] [place] [address] 2019-07-28 2019-07-28 Patient Doctor [place] [id number] 00:00:00 00:00:00 Secure Msg Unassigned, TOBACCO CHECKOUT CLERK [id number] [place] [facility] [id number] MATERNAL [phone] & CHILD [address] [place] [address] 2019-07-25 2019-07-25 Nurse Kemi Quintanilla [id number] Univers 00:00:00 00:00:00 Triage MARIAA [id number] it y of [facility] [id number] Rebel as [phone] [address] 2019-07-17 2019-07-17 Telephone Payal [facility] [id number] Univers 00:00:00 00:00:00 Roshunda R TOBACCO CHECKOUT CLERK [id number] ity of REGIONAL [id number] Rebel as MATERNAL [phone] [facility] ical & CHILD [address] [place] [address] 2019-07-17 2019-07-17 Telephone Payal GAJOCELIN [id number] Univers 00:00:00 00:00:00 Roshunda R TOBACCO CHECKOUT CLERK [id number] ity of [facility] [id number] Rebel as MATERNAL [phone] [facility] & CHILD [address] [place] [address] 2019-07-16 2019-07-16 Initial Payal [facility] [id number] Univers 10:07:56 11:16:22 Roshunda R TOBACCO CHECKOUT CLERK [id number] ity of Visit REGIONAL [id number] Rebel as MATERNAL [phone] Med ical & CHILD 107 [facility] 2019-07-16 2019-07-16 Outpatient R PAYAL [facility] [id number] Univers 09:15:00 09:15:00 MARCIANO ity o f [facility] 2019-07-16 2019-07-16 Orders Doctor CORRALES [id number] Univers 00:00:00 00:00:00 Only Unassigned, MARIAA [id number] ity of [facility] [id number] Rebel as [phone] [address] 2019-07-15 2019-07-15 Outpatient R LUCIANA CASTELAN [facility] [id number] Univers 09:00:00 09:00:00 ity of [facility] 2019-07-14 2019-07-14 Telephone Payal [facility] [id number] Univers 00:00:00 00:00:00 Marciano Huynh TOBACCO CHECKOUT CLERK [id number] ity [facility] [id number] Rebel as MATERNAL [phone] Med ical & CHILD 107 [facility] 2019-06-30 2019-06-30 Out[facility] [id number] Common 08:30:00 08:30:[address] [facility] 2019-06-27 2019-06-27 Out[facility] [id number] Common 14:17:00 14:17:[address] [facility] 2019-01-09 2019-01-09 Out[facility] [id number] Common 14:43:00 14:43:[address] [facility] 2018-12-19 2018-12-19 Outpatient [facility] [id number] Common 09:00:00 09:00:[address] [facility] 2018-11-18 2018-11-18 Out[facility] [id number] Common 13:15:00 13:15:[address] [facility] 2018-11-14 2018-11-14 Outpatient [facility] [id number] Common 10:45:00 10:45:[address] [facility] 2018-09-23 2018-09-23 Outpatient [facility] [id number] Common 08:03:00 08:03:[address] [facility] 2018-09-19 2018-09-19 Outpatient [facility] [id number] Common 11:15:00 11:15:[address] [facility] 2018-08-02 2018-08-02 Outpatient [facility] [id number] Common 13:42:00 13:42:[address] [facility] 2018-07-30 2018-07-30 Outpatient [facility] [id number] Common 08:53:00 08:53:[address] [facility] 2018-07-17 2018-07-17 Outpatient [facility] [id number] Common 09:45:00 09:45:[address] [facility] 2018-07-04 2018-07-04 Outpatient [facility] [id number] Common 10:40:00 10:40:[address] [facility] 2018-07-02 2018-07-02 Outpatient [facility] [id number] Common 09:00:00 09:00:[address] [facility] Results Test Description Test Time Test Comments Results Result Comments Source HGB HCT 2020-03-12 07:16:00 Test Item Value Reference Range Interpretation Comme nts HEMOGLOBIN (test code = HGB) 7.1 g/dL 10.7-13.9 L HEMATOCRIT (test code = HCT) 26.7 % 32.1-42.1 L AG HEPATITIS B [id number] 14:50:00 Test Item Value Reference Range Interpretation Comments AG HEPATITIS B SURFACE (test code NONREACTIVE NONREACTIVE = HBSAG) IS CONSENT FORM SIGNED FOR HIV TESTING? YAB HEPATITIS C [id number] 14:50:00 Test Item Value Reference Range Interpretation Comments AB HEPATITIS C (test code = NONREACTIVE NONREACTIVE HCVAB) SIGNAL TO CUTOFF (test code = 0.07 <0.80 N CUTOFF) IS CONSENT FORM SIGNED FOR HIV TESTING? YAB [id number] 14:50:00 Test Item Value Reference Range Interpretation Comments AB TREPONEMA (test code = TREPAB) NONREACTIVE NONREACTIVE IS CONSENT FORM SIGNED FOR HIV TESTING? YAB HIV 1 14:50:00 Test Item Value Reference Range Interpretation Comments AB HIV 1 2 (test NONREACTIVE NONREACTIVE Done by [facility] code = [id number]) 4th Gen HIV Ag/Ab Combo Screen IS CONSENT FORM SIGNED FOR HIV TESTING? YAG HEPATITIS B [id number] 14:24:00 Test Item Value Reference Range Interpretation Comments AG HEPATITIS B SURFACE (test code NONREACTIVE NONREACTIVE = HBSAG) IS CONSENT FORM SIGNED FOR HIV TESTING? YAB HEPATITIS C [id number] 14:24:00 Test Item Value Reference Range Interpretation Comments AB HEPATITIS C (test code = HCVAB) NONREACTIVE SIGNAL TO CUTOFF (test code = CUTOFF) <0.80 IS CONSENT FORM SIGNED FOR HIV TESTING? YAB [id number] 14:24:00 Test Item Value Reference Range Interpretation Comments AB TREPONEMA (test code = TREPAB) NONREACTIVE NONREACTIVE IS CONSENT FORM SIGNED FOR HIV TESTING? YAB HIV 1 14:24:00 Test Item Value Reference Range Interpretation Comments AB HIV 1 2 (test code = [id number]) NONREACTIVE IS CONSENT FORM SIGNED FOR HIV TESTING? YCBC W/AUTO [id number] 14:03:00 Test Item Value Reference Range Interpretation Comments WHITE BLOOD CELL (test code 4.6 K/mm3 6.6-12.1 L = WBC) RED BLOOD CELL (test code = 3.79 M/mm3 3.45-5.01 N RBC) HEMOGLOBIN (test code = 7.4 g/dL 10.7-13.9 L HGB) HEMATOCRIT (test code = 28.0 % 32.1-42.1 L HCT) MEAN CELL VOLUME (test code 74 fL 84.1-94.8 L = MCV) MEAN CELL HGB (test code = 19.5 pg 27-35 L MCH) MEAN CELL HGB CONCETRATION 26.4 gm/dL 32.2-34.1 L (test code = MCHC) RED CELL DISTRIBUTION WIDTH 19.2 % 12.4-16.5 H (test code = RDW) PLATELET COUNT (test code = 155 K/mm3 133-385 N PLT) MEAN PLATELET VOLUME (test 9.8 fl 9.1-12.7 N code = MPV) NEUTROPHIL % (test code = 67.0 % 56.5-79.4 N NT%) LYMPHOCYTE % (test code = 24.0 % 14.3-34.3 N LY%) MONOCYTE % (test code = 5.9 % 5.1-10.4 N MO%) EOSINOPHIL % (test code = 2.0 % 0.1-3.0 N EO%) BASOPHIL % (test code = 0.7 % 0.1-1.0 N BA%) NEUTROPHIL # (test code = 3.1 K/mm3 NT#) LYMPHOCYTE # (test code = 1.1 K/mm3 LY#) MONOCYTE # (test code = 0.3 K/mm3 MO#) EOSINOPHIL # (test code = 0.09 K/mm3 EO#) BASOPHIL # (test code = 0.0 K/mm3 BA#) RBC MORPHOLOGY REQUIRED ABNORMAL NORMAL HYPO =1+MICRO=1+ (test code = RBCM) PLATELET MORPHOLOGY NORMAL NORMAL REQUIRED (test code = PLTMR) CBC W/AUTO [id number] 13:52:00 Test Item Value Reference Range Interpretation Comments WHITE BLOOD CELL (test code = WBC) 4.6 K/mm3 6.6-12.1 L RED BLOOD CELL (test code = RBC) 3.79 M/mm3 3.45-5.01 N HEMOGLOBIN (test code = HGB) 7.4 g/dL 10.7-13.9 L HEMATOCRIT (test code = HCT) 28.0 % 32.1-42.1 L MEAN CELL VOLUME (test code = MCV) 74 fL 84.1-94.8 L MEAN CELL HGB (test code = MCH) 19.5 pg 27-35 L MEAN CELL HGB CONCETRATION (test 26.4 gm/dL 32.2-34.1 L code = MCHC) RED CELL DISTRIBUTION WIDTH (test 19.2 % 12.4-16.5 H code = RDW) PLATELET COUNT (test code = PLT) 155 K/mm3 133-385 N MEAN PLATELET VOLUME (test code = 9.8 fl 9.1-12.7 N MPV) NEUTROPHIL % (test code = NT%) 67.0 % 56.5-79.4 N LYMPHOCYTE % (test code = LY%) 24.0 % 14.3-34.3 N MONOCYTE % (test code = MO%) 5.9 % 5.1-10.4 N EOSINOPHIL % (test code = EO%) 2.0 % 0.1-3.0 N BASOPHIL % (test code = BA%) 0.7 % 0.1-1.0 N NEUTROPHIL # (test code = NT#) 3.1 K/mm3 LYMPHOCYTE # (test code = LY#) 1.1 K/mm3 MONOCYTE # (test code = MO#) 0.3 K/mm3 EOSINOPHIL # (test code = EO#) 0.09 K/mm3 BASOPHIL # (test code = BA#) 0.0 K/mm3 RBC MORPHOLOGY REQUIRED (test code NORMAL = RBCM) PLATELET MORPHOLOGY REQUIRED (test NORMAL code = PLTMR) COVID 19 Asymptomatic IH [id number] 15:11:00 Test Item Value Reference Range Interpretation Comments COVID 19 NEGATIVE NEGATIVE This test has b een Asymptomatic IH AG authorize d only for the (test code = detection ofpro teins from COVNONPUIAG) SARS-CoV-2, not for any other viruses orpathogens. Ne gative results should be treated as presumptive andconfirmed wi th a molecular assay , if necessary for patientmanageme nt. Negative result s do not rule out COVID- 19 andshould not b e used as the sole basis for treatment orpat ient management deci sions, including infec tion controldecision s. Negative result s should be considered i n thecontext of a patient's recent exposure s, history and thepresence of clinical signs and symptoms consis tent withCOVID-19. T his test has not been FD A cleared or approved; th e test hasbeen authori zed by FDA under an Emerge ncy Use Authorization(E UA) for use by laborato tucker certified under the CLIA thatmeet the re quirements to perform mode rate, high or waivedcomple xity tests. This yamil t is authorized for use at thePoint of Car e (POC), i.e., in patien t care settingsoperati ng under a CLIA Certificat e of Waiver, Certifi john ofCompliance, o r Certificate of Accreditation. This test is only authori zed for the duration of thedeclaration that circumstances e xist justifying theauthorizatio n of emergency use o f in vitro diagnostic test sfor detection and/o r diagnosis of CO VID-19 under Xeghyym95 4(b)(1) of the Act, 21 U.S .C. 360bbb-3(b)(1), unless theauthorizatio n is terminated or r evoked sooner. RUPTURE OF [id number] 02:58:00 Test Item Value Reference Range Interpretation Comments RUPTURE OF MEMBRANES (test code NON-RUPTURED = ROM) POCT FLU A AND B (MOLECULAR)2020-02-24 21:16:00 Test Item Value Reference Range Interpretation Comments POCT INFLUENZA A (test code = negative Negative - Negative 3840) POCT INFLUENZA B (test code = negative Negative - Negative 3841) Lab Interpretation (test code = Normal 79199-8) [facility] URINALYSIS W SPECIFIC [id number] 15:25:00 Test Item Value Reference Range Interpretation Comments POCT U SP GRAV (test code = . 1.005-1.025 3255) POCT PH U (test code = 3254) 7 mg/dl 5-8 POCT U LEUK EST (test code = negative Negative - Negative 3263) POCT U NIT (test code = 3262) negative Negative - Negative POCT U PROT (test code = 3259) trace Negative - Negative POCT U GLU (test code = 3256) engative Negative - Negative POCT U KETONE (test code = 3258) negative Negative - Negative POCT U UROBILI (test code = . 0.2-1 3260) POCT U BILI (test code = 3261) . Negative - Negative POCT U BLD (test code = 3257) negative Negative - Negative POCT U COLOR (test code = 3266) POCT U APPEAR (test code = 3267) [id number] 15:25[facility]00 Test Item Value Reference Range Interpretation Comments POCT PREG (test code = 1605) Positive On board controls acceptable with C Yes Line (test code = 3574) POCT PREG LOT # (test code = 3575) POCT PREG TEST DATE (test code = 3576) [facility] Notes Date/Time Note Provider Source 2020-03-12 07:56:00-00:00 [facility] OB Postpart Progr Note REPORT#:[id number] REPORT STATUS: Signed DATE:03/12/20 TIME: 755 PATIENT: DAVEY BOJORQUEZ UNIT #: [id number] ROOM/BED: [address] : 93 AGE: 24 SEX: F ATTEND: Jelani Martin MD ADM AUTHOR: Cedric Martin MD * ALL edits or amendments must be made on the el [employer]/computer document * Subjective Subjective Admission EGA: Weeks: 39 Days: 0 Status/day: post (day 2) Patient reports: Patient reports: No: complaints. Objective Nursing Documentation Review Nursing data: The data set between the solid lines has been im ported from nursing documentation. Any exceptions have been noted be low under Provider comments. Feeding preference: Provider comments on imported nursing data: [] General VS: Vital Signs Date Temp Pulse Resp B/P B/P Mean Pulse Ox FiO2 03/11 97.8-98.7 50-70 18- 100-111/61-73 Last Documented: Result Date Time B/P 105/67 03/11 2327 Temp 97.8 03/11 2327 Pulse 50 03/11 2327 Resp 20 03/11 2327 B/P Mean 84.0 03/11 0151 PATIENT WEIGHT: Weight (lb): 170 Weight (oz): Weight (kg): 77.111 Physical Exam Lungs: clear to auscultation Abdomen: soft, no abnormal tenderness, no guardi ng Uterus: firm, involution appropriate, non-tender Fundus: firm, below the umbilicus Lochia: normal Lacerations: Perineal laceration(s): 1st Degree w/vagina High vaginal laceration: no Lower extremities: Edema: none Result Findings/data: Laboratory Tests: 03/12 628 Hematology Hgb (10.7 - 13.9 g/dL) 7.1 L Hct (32.1 - 42.1 %) 26.7 L Diagnosis, Assessment Plan Diagnosis, Assessment Plan Assessment: nml progress, chronic ane devin, CBC pending Plan: routine care, discharge today at 0757 RPT #:[id number] END OF REPORT 2020-03-11 06:57:00-00:00 [facility] ([facility]) OB Postpart Progr Note REPORT#:[id number] REPORT STATUS: Signed DATE:03/11/20 TIME: 06 PATIENT: DAVEY BOJORQUEZ UNIT #: [id number] ROOM/BED: : 93 AGE: 24 SEX: F ATTEND: Jelani Martin MD ADM AUTHOR: Cedric Martin MD * ALL edits or amendments must be made on the [employer]/computer document * Subjective Subjective Admission EGA: Weeks: 39 Days: 0 Status/day: post (day 1) Patient reports: Patient reports: No: complaints. Objective Nursing Documentation Review Nursing data: The data set between the solid lines has been im ported from nursing documentation. Any exceptions have been noted be low under Provider comments. Feeding preference: Provider comments on imported nursing data: [] General VS: Vital Signs Date Temp Pulse Resp B/P B/P Mean Pulse Ox FiO2 03/10-03/11 98.0-98.2 47-70 - 106-128/54-76 74.0-95.0 Last Documented: Result Date Time B/P 110/54 03/11 215 Temp 98.2 03/11 021 Pulse 56 03/11 021 Resp 16 03/11 215 B/P Mean 84.0 03/11 0151 PATIENT WEIGHT: Weight (lb): 170 Weight (oz): Weight (kg): 77.111 Physical Exam Lungs: clear to auscultation Abdomen: soft, no abnormal tenderness, no guardi ng Uterus: firm, involution appropriate, non-tender Fundus: firm, below the umbilicus Lochia: normal Lacerations: Perineal laceration(s): 1st Degree w/vagina High vaginal laceration: no Lower extremities: Edema: none Result Findings/data: Laboratory Tests: 03/10 1320 Hematology WBC (6.6 - 12.1 K/mm3) 4.6 L RBC (3.45 - 5.01 M/mm3) 3.79 Hgb (10.7 - 13.9 g/dL) 7.4 L Hct (32.1 - 42.1 %) 28.0 L MCV (84.1 - 94.8 fL) 74 L MCH (27 - 35 pg) 19.5 L MCHC (32.2 - 34.1 gm/dL) 26.4 L RDW (12.4 - 16.5 %) 19.2 H Plt Count (133 - 385 K/mm3) 155 MPV (9.1 - 12.7 fl) 9.8 Neut % (Auto) (56.5 - 79.4 %) 67.0 Lymph % (Auto) (14.3 - 34.3 %) 24.0 Grand % (Auto) (5.1 - 10.4 %) 5.9 Eos % (Auto) (0.1 - 3.0 %) 2.0 Baso % (Auto) (0.1 - 1.0 %) 0.7 Neut # (Auto) (K/mm3) 3.1 Lymph # (Auto) (K/mm3) 1.1 Grand # (Auto) (K/mm3) 0.3 Eos # (Auto) (K/mm3) 0.09 Baso # (Auto) (K/mm3) 0.0 Serology Treponema pallidum Ab (NONREACTIVE) NONREACTIVE Hep Bs Antigen (NONREACTIVE) NONREACTIVE Hepatitis C Antibody (NONREACTIVE) NONREACTIVE Hep C Ab Signal/Cutoff (<0.80) 0.07 HIV 1 2 Antibody (NONREACTIVE) NONREACTIVE Diagnosis, Assessment Plan Diagnosis, Assessment Plan Assessment: nml progress, chronic ane devin, CBC pending at 0755 RPT #:[id number] END OF REPORT 2020-03-10 23:59:00-00:00 [facility] ([facility]) OB Delivery Note REPORT#:[id number] REPORT STATUS: Signed DATE:03/10/20 TIME: 2359 PATIENT: DAVEY BOJORQUEZ UNIT #: [id number] ROOM/BED: [address] : 93 AGE: 24 SEX: F ATTEND: Jelani Martin MD ADM AUTHOR: Cedric Martin MD * ALL edits or amendments must be made on the [employer] document * OB Delivery Pre-delivery GBS status: GBS status: negative Admission EGA: Weeks: 39 Days: 0 Baby A Information Baby A information Delivery date: 03/10/20 status: live born Gender: female 1 minute: 8 5 minutes: 9 Presentation: vertex Anomalies: none ABG details Baby A Cord blood gases: not collected Nuchal cord Baby A Nuchal cord: yes (loose and reduced) Vaginal Delivery Vaginal delivery: Labor: induced Medications/Devices used: oxytocin Vaginal delivery: spontaneous Amniotic fluid: clear Anesthesia type: no anesthesia Episiotomy: none Episiotomy repair: not applicable Laceration repair: yes, 3-0 suture Placenta: spontaneous, intact Post delivery meds used: oxytocin, methergine Count: correct, vag exam neg for sponges Vaginal packing: No Mother's condition: mother stable 's condition: infant stable in room Lacerations: Perineal laceration(s): 1st Degree w/vagina High vaginal laceration: no Blood Loss/Details Blood loss at delivery: no more than expected EBL at delivery (ml's): 400 at 0000 RPT #:[id number] END OF REPORT 2020-03-10 12:26:00-00:[address] [facility] ([facility]) OB Admission / H P REPORT#:[id number] REPORT STATUS: Signed DATE:03/10/20 TIME: 1226 PATIENT: DAVEY BOJORQUEZ UNIT #: [id number] ROOM/BED: : 93 AGE: 24 SEX: F ATTEND: Jelani Martin MD ADM AUTHOR: Cedric Martin MD * ALL edits or amendments must be made on the [employer] document * OB History Chief complaint: scheduled induction HPI: AT 39 WEEKS WITH FAVOURABLE CERVIX, FOR ELECTIVE INDUCTION OF LABOR Conditions of : anemia, MIGRAINES, ANEM IA Past medical history: ANEMIA Past surgical history: denies PSH Social history: no alcohol use, no tobacco use, no drug use Medications: Home Medications: PNV WITH FE FUMARATE/FA () 1 TAB PO ERASMO Y GABAPENTIN (NEURONTIN) 600 MG PO TID Allergies Uncoded Allergies: LORATAB (Mild, HIVES 09/11/19) Objective General VS: PATIENT WEIGHT: Weight (lb): Weight (oz): Weight (kg): Physical Exam Cardiac: regular rate and rhythm Lungs: clear to auscultation Abdomen: gravid, no abnormal tenderness, no guar ding Uterine activity: Monitor: toco Frequency (description): none Pelvic exam: Pelvis clinically adequate: yes, inlet appears appropriate, pubic bone config appropr, no midpelvic contraction Vulvar lesions: none, no evidence herpetic les, no evidence of other STD Vagina: normal, non-septated, w/o apparent lesi ons Uterus size in weeks: 40 Exam: soft, non-tender, approp size for gest ag e Cervical/ exam: Dilatation (cm): 2 Effacement (%): 50 Est wt (gms): 3250 Suspected macrosomia: No Membranes: Membranes: Intact Lower extremities: Edema: none Baby A: Baby A FHR category: category 1 Diagnosis, Assessment Plan Diagnosis, Assessment Plan Free Text A P: AT 39 WEEKS WITH FAVOURABLE CERVIDX. 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 PATIENT HAS H ISTORY OF ANEMIA, UNRESPONSIVE TO IRON INFUSIONS, HAS BEEN REFERRED TO A GENERAL SUPERVISOR. WILL TYPE AND CROSS 2 UNITS PRBC. Assessment/Impression: spont .active labor<39 wks ( AT 39 WEEKS WITH FAVOU ) at 1231 RPT #:[id number] END OF REPORT
[2022-11-23 14:43] LABS: Absolute Lymphocytes (CBC) 1.2 K/uL (0.7-4.9); Hematocrit 27.5 % (36.0-45.0); Lymphocytes % 31.9 % (15.3-44.8); MCV 75.3 fL (80-100); MPV 7.3 fL (7.6-11.3); Platelets 202 thou/uL (152-406); RBC Red Blood Cell Count 3.65 M/uL (3.86-4.86)
--- NOTE | 2022-11-23 14:58 | EDPHYS ---
Physician Documentation [facility] Name: Kelli Baugh Age: 26 yrs Sex: Female : 1995 Arrival Date: 11/23/2022 Time: 14:01 Bed 7 Private MD: ED Physician Jose Tobar HPI: 11/23 14:57 This 26 yrs old Female presents to ER via Ambulatory with complaints of ms3 Dizziness. 14:57 26-year-old female with past medical history of anemia, anxiety, Graves' disease ms3 presents for fatigue, lightheadedness, weakness. Patient was seen in her GI physician's office and referred to come to the emergency department for possible blood transfusion. Patient states she recently missed her iron transfusions. Patient denies pain, nausea, vomiting. Patient endorses shortness of breath. 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 - Social history:: Smoking status: Patient denies any tobacco usage or history of. ROS: 14:57 ENT: Negative for injury, pain, and discharge, Neck: Negative for injury, pain, and ms3 swelling, Cardiovascular: Negative for chest pain, and palpitations. 14:57 Abdomen/GI: Negative for abdominal pain, nausea, vomiting, diarrhea, and constipation, MS/Extremity: Negative for injury and deformity, Skin: Negative for injury, rash, and discoloration. 14:57 Constitutional: Positive for fatigue. 14:57 Respiratory: Positive for shortness of breath. 14:57 All other systems are negative. Exam: 14:57 Constitutional: This is a well developed, well nourished patient who is awake, alert, ms3 and in no acute distress. Head/Face: Normocephalic, atraumatic. Neck: Trachea midline, no cervical lymphadenopathy. Supple, full range of motion without nuchal rigidity, or vertebral point tenderness. No Meningismus. Chest/axilla: Normal chest wall appearance and motion. Nontender with no deformity. Cardiovascular: Regular rate and rhythm with a normal S1 and S2. No gallops, murmurs, or rubs. Normal PMI, no JVD. No pulse deficits. Respiratory: Lungs have equal breath sounds bilaterally, clear to auscultation and percussion. No rales, rhonchi or wheezes noted. No increased work of breathing, no retractions or nasal flaring. Abdomen/GI: Soft, non-tender, with normal bowel sounds. No distension or tympany. No guarding or rebound. No evidence of tenderness throughout. MS/ Extremity: Pulses equal, no cyanosis. Neurovascular intact. Full, normal range of motion. Vital Signs: 14:08 BP 131 / 91; Pulse 68; Resp 17; Temp 98.2; Pulse Ox 100% ; Weight 71.21 kg; Height 5 ap3 ft. 4 in. ; 15:07 BP 122 / 93; Pulse 67; Resp 16; Pulse Ox 100% ; ll1 14:08 Body Mass Index 26.95 (71.21 kg, 162.56 cm) ap3 MDM: 14:25 Patient medically screened. ms3 14:57 Differential diagnosis: generalized weakness, hypovolemia, Anemia. ms3 14:57 Data reviewed: vital signs, nurses notes, lab test result(s), and as a result, I will ms3 discharge patient. Counseling: I had a detailed discussion with the patient and/or guardian regarding the historical points, exam findings, and any diagnostic results supporting the discharge/admit diagnosis, lab results, the need for outpatient follow up, to return to the emergency department if symptoms worsen or persist or if there are any questions or concerns that arise at home. Special discussion: I discussed with the patient/guardian in detail that at this point there is no indication for admission to the hospital. It is understood, however, that if the symptoms persist or worsen the patient needs to return immediately for re-evaluation. ED course: Discussed labs with patient. Patient to follow-up with primary care physician as discussed. All questions were answered. Return precautions discussed include worsening symptoms, or any other concerns. On reevaluation patient is alert and oriented x4, no apparent distress, nontoxic-appearing, ambulatory in the emergency department, speaking full sentences. 11/23 14:25 Order name: CBC with Diff; Complete Time: 14:54 ms3 11/23 14:25 Order name: BMP; Complete Time: 18:32 ms3 Administered Medications: No medications were administered Disposition Summary: 11/23/22 14:57 Discharge Ordered Location: Home ms3 Condition: Stable ms3 Diagnosis - Anemia, unspecified ms3 - Other fatigue ms3 - Elevated blood-pressure reading, without diagnosis of hypertension ms3 Followup: ms3 - With: Private Physician - When: 2 - 3 days - Reason: Recheck today's complaints Discharge Instructions: - Discharge Summary Sheet ms3 - Anemia ms3 - Fatigue ms3 Forms: - Medication Reconciliation Form ms3 - Thank You Letter ms3 - Antibiotic Education ms3 - Prescription Opioid Use ms3 - Patient Portal Instructions ms3 - Leadership Thank You Letter ms3 Signatures: Dispatcher [employer] Dinorah Rivas RN RN ap3 Jose Tobar DO DO ms3
--- NOTE | 2022-11-23 14:58 | ER ---
Nurse's Notes [facility] Name: Kelli Baugh Age: 26 yrs Sex: Female : 1995 Arrival Date: 11/23/2022 Time: 14:01 Bed 7 Private MD: Diagnosis: Anemia, unspecified;Other fatigue;Elevated blood-pressure reading, without diagnosis of hypertension Presentation: 11/23 14:08 Chief complaint: Patient states: she has missed her last appointment for iron ap3 transfusions, and her symptoms are getting worse. patient states she called her PCP with her symptoms and they told her to come get evaluated in the ED. Patient reports feeling dizzy, week, and that her fingertips are getting more white. Coronavirus screen: At this time, the client does not indicate any symptoms associated with coronavirus-19. Ebola Screen: No symptoms or risks identified at this time. Initial Sepsis Screen: Does the patient meet any 2 criteria? No. Patient's initial sepsis screen is negative. Does the patient have a suspected source of infection? No. Patient's initial sepsis screen is negative. Risk Assessment: Do you want to hurt yourself or someone else? Patient reports no desire to harm self or others. Onset of symptoms is unknown. 14:08 Method Of Arrival: Ambulatory ap3 14:08 Acuity: AMADOR 3 ap3 Triage Assessment: 14:12 General: Appears in no apparent distress. distressed, comfortable, Behavior is calm, ap3 cooperative, appropriate for age. Pain: Denies pain. Neuro: Level of Consciousness is awake, alert, obeys commands, Oriented to person, place, time, situation, Reports dizziness. Cardiovascular: Patient's skin is warm and dry. Respiratory: Airway is patent Respiratory effort is even, unlabored, Respiratory pattern is regular, symmetrical. 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 - Social history:: Smoking status: Patient denies any tobacco usage or history of. Screenin:12 [facility] ED Fall Risk Assessment (Adult) History of falling in the last 3 months, ap3 including since admission No falls in past 3 months (0 pts). Abuse screen: Denies threats or abuse. Nutritional screening: No deficits noted. Tuberculosis screening: No symptoms or risk factors identified. Assessment: 14:34 Reassessment: No changes from previously documented assessment. Patient and/or family ld1 updated on plan of care and expected duration. Pain level reassessed. Patient is alert, oriented x 3, equal unlabored respirations, skin warm/dry/pink. 15:07 Reassessment: No changes from previously documented assessment. Patient and/or family ll1 updated on plan of care and expected duration. Pain level reassessed. Patient is alert, oriented x 3, equal unlabored respirations, skin warm/dry/pink. Vital Signs: 14:08 BP 131 / 91; Pulse 68; Resp 17; Temp 98.2; Pulse Ox 100% ; Weight 71.21 kg; Height 5 ap3 ft. 4 in. ; 15:07 BP 122 / 93; Pulse 67; Resp 16; Pulse Ox 100% ; ll1 14:08 Body Mass Index 26.95 (71.21 kg, 162.56 cm) ap3 ED Course: 14:03 Patient arrived in ED. rg4 14:04 Jose Tobar DO is Attending Physician. ms3 14:11 Triage completed. ap3 14:12 Arm band placed on right wrist. ap3 14:21 Sonya Boss, WILLA is Primary Nurse. ko1 14:33 Inserted saline lock: 22 gauge in right antecubital area, using aseptic technique. ld1 Blood collected. 14:47 CBC with Diff Sent. ld1 14:47 BMP Sent. ld1 15:07 No provider procedures requiring assistance completed. IV discontinued, intact, ll1 bleeding controlled, No redness/swelling at site. Pressure dressing applied. 15:08 Patient has correct armband on for positive identification. Bed in low position. Call ll1 light in reach. Provided Education on: n/a. Administered Medications: No medications were administered Medication: 15:08 VIS not applicable for this client. ll1 Outcome: 14:57 Discharge ordered by . ms3 15:08 Discharged to home ambulatory. ll1 15:08 Condition: stable 15:08 Discharge instructions given to patient, family, Instructed on discharge instructions, follow up and referral plans. Demonstrated understanding of instructions, follow-up care. 15:08 Patient left the ED. ll1 Signatures: Viry Bush rg4 Dinorah Wesley RN RN ap3 Abiola Sanchez RN RN ll1 Jose Tobar DO DO ms3 Juli Tobar RN RN ld1 Sonya Boss RN RN ko1
[2022-11-23 15:08] LABS: Potassium 3.7 mEq/L (3.5-5.1)
[2022-11-23 16:22] VITALS: TEMP 98.2; O2SAT 100
[2022-11-23 16:23] VITALS: BP 122/93
== END 2022-11-23 15:08 | disposition home or self-care (01) ==
LOC: ER 14:01
DX: D64.9 Anemia, unspecified (principal); R53.83 Other fatigue; R03.0 Elevated blood-pressure reading, without diagnosis of hypertension; F41.9 Anxiety disorder, unspecified; Z88.5 Allergy status to narcotic agent
CPT/HCPCS: 36415; 80048; 85025; 99283